=== PATIENT | male | born 1945 | race Caucasian/White ===

== ENCOUNTER 2018-06-09 10:00 | Emergency (ER) | payer MEDICARE ==
[2018-06-09 10:25] VITALS: BP 131/81; PULSE 70; RESP 16; TEMP 97.5
--- NOTE | 2018-06-09 10:39 | ED ---
General Adult HPI - General Chief complaint: Fall Stated complaint: fall Time Seen by Provider: 06/09/18 10:31 Source: patient, RN notes reviewed, old records reviewed Mode of arrival: wheelchair Limitations: no limitations - History of Present Illness Initial comments: 72-year-old male presents status post fall. Fall occurred yesterday at approximately 4 PM. Patient was standing on a ladder, slipped falling onto his left shoulder. He did have minor head injury, uncertain if there was loss of consciousness. Patient is not on any anticoagulation. Over the past 20 hours patient has had increasing pain with movement of the left shoulder, and reports stiffness in his neck. Denies significant headache. Denies any lower extremity injury. No right upper extremity injury. No chest pain or abdominal pain. No dyspnea. No focal numbness or weakness. - Related Data Home Medications Medication Instructions Recorded Confirmed Atorvastatin Calcium [Lipitor] 20 mg PO HS 06/09/18 06/09/18 Azithromycin See Taper PO DAILY 06/09/18 06/09/18 Citalopram Hydrobromide 40 mg PO HS 06/09/18 06/09/18 [Citalopram HBr] Omeprazole 20 mg PO DAILY 06/09/18 06/09/18 Tamsulosin HCl [Flomax] 0.4 mg PO DAILY 06/09/18 06/09/18 predniSONE 10 mg PO DAILY 06/09/18 06/09/18 Allergies Allergy/AdvReac Type Severity Reaction Status Date / Time No Known Allergies Allergy Verified 06/09/18 11:40 Review of Systems ROS Statement: Those systems with pertinent positive or pertinent negative responses have been documented in the HPI. ROS Other: All systems not noted in ROS Statement are negative. Past Medical History Past Medical History: Prostate Disorder History of Any Multi-Drug Resistant Organisms: None Reported Past Surgical History: No Surgical Hx Reported Past Psychological History: Depression Smoking Status: Current every day smoker Past Alcohol Use History: Occasional Past Drug Use History: None Reported General Exam Limitations: no limitations General appearance: alert, in no apparent distress Head exam: Present: atraumatic, normocephalic Eye exam: Present: normal appearance, PERRL ENT exam: Present: normal exam Neck exam: Present: normal inspection, tenderness. Absent: meningismus, full ROM (Patient has decreased range of motion secondary to left paraspinal muscle spasm and tenderness) Respiratory exam: Present: normal lung sounds bilaterally. Absent: respiratory distress, wheezes Cardiovascular Exam: Present: regular rate, normal rhythm GI/Abdominal exam: Present: soft. Absent: distended, tenderness, guarding Extremities exam: Present: normal inspection (No external signs of trauma left upper extremity, range of motion secondary to pain. No deformity noted.). Absent: full ROM Back exam: Present: normal inspection, full ROM. Absent: tenderness, paraspinal tenderness Neurological exam: Present: alert, oriented X3, CN II-XII intact, normal gait. Absent: motor sensory deficit Psychiatric exam: Present: normal affect, normal mood Skin exam: Present: warm, dry, intact. Absent: cyanosis, diaphoretic Course Vital Signs 06/09/18 10:21 Temperature 97.5 F L Pulse Rate 70 Respiratory 16 Rate Blood Pressure 131/81 O2 Sat by Pulse 98 Oximetry Medical Decision Making - Medical Decision Making 72-year-old male status post fall left shoulder pain, left-sided neck pain. Imaging is obtained cervical spine, and this is negative for fracture subluxation. CT of the brain is obtained for intracranial hemorrhage post-x-ray left shoulder and left humerus negative for any acute bony abnormality. Frederic morris did not want any pain medication the emergency department. He will take anti- inflammatories at home. Follow-up with primary care physician. Return with worsening or changing symptoms. Disposition Clinical Impression: Fall, Shoulder contusion, Neck sprain Disposition: HOME SELF-CARE Condition: Good Instructions (If sedation given, give patient instructions): Cervical Strain (ED), Shoulder Sprain (ED) Is patient prescribed a controlled substance at d/c from ED?: No Referrals: Lalito Lorenzo MD [Primary Care Provider] - 1-2 days Time of Disposition: 11:50
--- NOTE | 2018-06-09 11:16 | CT ---
EXAMINATION TYPE: CT brain indio tracy DATE OF EXAM: 06/09/2018 COMPARISON: None HISTORY: Fall CT DLP: 1216.[address] of the brain was performed. The ventricles, basal cisterns and sulci overlying the cerebral convexities demonstrate mild to moder ate enlargement. There is no evidence for intracranial hemorrhage or sulcal effacement. There is decreased attenuatio n about the periventricular white matter and deep white matter of both cerebral hemispheres, compatib le with chronic small vessel ischemia. No mass effects are seen. If symptoms persist consider MRI. Osseous calvarium is intact. IMPRESSION: 1. Age related atrophic and chronic small vessel ischemic change without acute intracranial process seen at this time. CT Cervical Spine: Unenhanced CT of the cervical spine was performed with bone and soft tissue window settings submitted . Coronal and sagittal reconstruction is obtained. There is normal alignment and prevertebral soft tissues. No evidence for acute cervical fracture . Scattered degenerative disc disease and spondylosis. Biapical scarring. IMPRESSION: 1. No evidence for acute fracture or subluxation of the cervical spine.
--- NOTE | 2018-06-09 11:31 | XR ---
EXAMINATION TYPE: XR shoulder complete LT, XR humerus LT DATE OF EXAM: 06/09/2018 CLINICAL HISTORY: Fall injury yesterday with pain TECHNIQUE: Three views of the left shoulder are obtained. 2 views left humerus are acquired. COMPARISON: None. FINDINGS: Demineralization is present. There is no acute fracture/dislocation evident in the left sh oulder. A 5 mm well-corticated oval ossific density from superior aspect distal clavicle could reflec t old avulsion type fracture. The acromioclavicular and glenohumeral joint spaces appear within serge l limits. The visualized ribs are intact and unremarkable. Images of left humerus show no acute fracture or dislocation. Visualized portion of elbow joint is fe lt within normal limits. Overlying soft tissue is unremarkable. IMPRESSION: There is no acute fracture or dislocation in the left humerus or shoulder.
[2018-06-09] MEDS ORDERED: IBUPROFEN 600 MG TAB PO STA (11:36)
== END 2018-06-09 11:57 | disposition home or self-care (01) ==
LOC: EC 10:00
DX: S13.4XXA Sprain of ligaments of cervical spine, initial encounter (principal); S40.012A Contusion of left shoulder, initial encounter; S09.90XA Unspecified injury of head, initial encounter; N42.9 Disorder of prostate, unspecified; F32.9 Major depressive disorder, single episode, unspecified; F17.200 Nicotine dependence, unspecified, uncomplicated; Z79.52 Long term (current) use of systemic steroids; Z79.899 Other long term (current) drug therapy; Z53.8 Procedure and treatment not carried out for other reasons; W11.XXXA Fall on and from ladder, initial encounter; Y92.89 Other specified places as the place of occurrence of the external cause
CPT/HCPCS: 70450; 72125; 99284

== ENCOUNTER → 2018-10-13 | Outpatient (CLI) | payer MEDICARE ==
--- NOTE | 2018-10-15 21:49 | US ---
EXAMINATION TYPE: US carotid duplex BILAT DATE OF EXAM: 10/13/2018 COMPARISON: NONE CLINICAL HISTORY: 72-year-old male G45.9 TIA. TIA TECHNIQUE: Carotid duplex ultrasound examination. Indirect upper criteria was utilized. FINDINGS: EXAM MEASUREMENTS: RIGHT: Peak Systolic Velocity (PSV) cm/sec ----- Right CCA: 83.1 ----- Right ICA: 72.7 ----- Right ECA: 85.8 ICA/CCA ratio: 0.9 RIGHT: End Diastole cm/sec ----- Right CCA: 27.3 ----- Right ICA: 34.3 ----- Right ECA: 22.9 LEFT: Peak Systolic Velocity (PSV) cm/sec ----- Left CCA: 83.4 ----- Left ICA: 221.4 ----- Left ECA: 75.3 ICA/CCA ratio: 2.7 LEFT: End Diastole cm/sec ----- Left CCA: 24.1 ----- Left ICA: 91.3 ----- Left ECA: 16.0 VERTEBRALS (direction of flow): Right Vertebral: Antegrade Left Vertebral: Antegrade Rhythm: Normal [employer] notes: Heterogeneous plaque seen with increase velocities seen at left ICA IMPRESSION: Measurements suggest a moderate (50-69%) stenosis within the proximal left ICA. CT angiogram can furt her evaluate if indicated. Criteria for Assigning % of Stenosis / Diameter reduction (Estimation based on the indirect measurements of the internal carotid artery velocities (ICA PSV). 1. Normal (no stenosis)=ICA PSV < 125 cm/s: ratio < 2.0: ICA EDV<40 cm/s. 2. Less than 50% stenosis=ICA PSV < 125 cm/s: ratio < 2.0: ICA EDV<40 cm/s. 3. 50 to 69% stenosis=ICA PSV of 125 to 230 cm/s: ration 2.0 ? 4.0: ICA EDV 40-100 cm/s. 4. Greater than 70% stenosis to near occlusion= ICA PSV > 230 cm/s: ratio > 4.0: ICA EDV > 100 cm/s. 5. Near occlusion= ICA PSV velocities may be low or undetectable: variable ratio and ICA EDV. 6. Total occlusion=unable to detect flow.
== END | disposition home or self-care (01) ==
LOC: RADUSWWP 15:52
PROVIDERS: ATTEND Internal Medicine
DX: I65.22 Occlusion and stenosis of left carotid artery (principal)
CPT/HCPCS: 93880

== ENCOUNTER → 2018-11-02 | Outpatient (CLI) | payer MEDICARE ==
[2018-11-02 07:02] LABS: African American GFR (CKD) >90 (>60 ml/min/1.73 sqM); Blood Urea Nitrogen 19 mg/dL (9-20)
--- NOTE | 2018-11-02 10:26 | CT ---
EXAMINATION TYPE: CT angio neck DATE OF EXAM: 11/02/2018 HISTORY: Carotid stenosis. COMPARISON: CT of the cervical spine dated 06/09/2018. Carotid ultrasound dated 10/13/2018 CT DLP: 187.1 mGycm. Automated Exposure Control for Dose Reduction was Utilized. TECHNIQUE: CTA scan of the neck is performed , patient injected with 100 mL of Isovue 370, axial siri ges are obtained, coronal and sagittal reformatted images are reviewed. Three-D reconstructed images are created on an independent workstation and reviewed. FINDINGS: Carotid/Vascular Structures: Normal three-vessel takeoff of the articular the aorta. Bilateral common carotid arteries are patent. Small focal calcified plaque is seen near the right carotid bifurcation and proximal right internal carotid artery origin. There is aneurysmal dilatation of the proximal ri ght internal carotid artery measuring approximately 1.7 cm in diameter and 0.9 cm in length. No evide nce of significant stenosis. The remaining portions of the right internal carotid artery are patent. At the origin of the left internal carotid artery there is an area of severe focal stenosis with lume n measuring approximately 1.7 mm. The length of this area is approximately 0.6 centimeters. There is poststenotic dilatation of the proximal left internal carotid artery measuring up to 0.6 cm. No evide nce of dissection, occlusion or stenosis in the remaining left internal carotid artery. Bilateral cheng tebral arteries are patent. Visualized portion of the basilar artery is patent. Other: Emphysematous changes are seen in the lung apices. Soft tissue nodular density seen in the ant erior aspect of the right upper lobe measuring 0.6 cm. These findings are best seen on axial image 6. Small hypoattenuating nodule is seen in the left lobe of the thyroid gland measuring 0.8 cm. IMPRESSION: Greater than 75% stenosis in the proximal left internal carotid artery with poststenotic dilatation o f the proximal left internal carotid artery. 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 0.6 cm right upper lobe soft tissue nodule. Further evaluation with noncontrast CT of the chest is re commended. Left thyroid gland nodule. Further evaluation may be obtained with dedicated thyroid ultrasound.
== END | disposition home or self-care (01) ==
LOC: RADCTMAIN 05:38
PROVIDERS: ATTEND Surgery
DX: I65.22 Occlusion and stenosis of left carotid artery (principal); I72.0 Aneurysm of carotid artery; E04.1 Nontoxic single thyroid nodule
CPT/HCPCS: 82565; 84520; 70498; Q9967

== ENCOUNTER → 2018-11-15 | Outpatient (CLI) | payer MEDICARE ==
--- NOTE | 2018-11-15 16:05 | US ---
EXAMINATION TYPE: US thyroid st tissue head/neck DATE OF EXAM: 11/15/2018 COMPARISON: CLINICAL HISTORY: R22.[address] showed nodule. Patient is not on thyroid meds. GLAND SIZE: Right Lobe: 3.6 x 1.4 x 1.5 cm Overall Parenchyma: homogenous Left Lobe: 4.3 x 1.4 x 1.7 cm Overall Parenchyma: homogeneous Isthmus Thickness: 0.2 cm NODULES RIGHT: # of nodules measured on right: 0 LEFT: # of nodules measured on left: 2 1. 0.9 x 0.6 x 0.5 cm septated cystic nodule at the upper pole with well-defined margins. This nod ule is wider than tall and shows no intranodular vascularity. Prior size: No prior 2. 0.4 X 0.3 x 0.2 cm cystic nodule at the mid pole with well-defined margins. This nodule is wider than tall and shows no intranodular vascularity. Prior size: No prior ISTHMUS: # of nodules measured in the isthmus: 0 Bilateral neck scanned, no evidence of lymphadenopathy. IMPRESSION: 1. Subcentimeter left lobe thyroid nodules.
--- NOTE | 2018-11-17 03:34 | CT ---
EXAMINATION TYPE: CT chest wo con DATE OF EXAM: 11/15/2018 COMPARISON: Correlation CTA neck 11/02/2018 HISTORY: 73-year-old male solitary pulmonary nodule TECHNIQUE: Contiguous axial scanning of the chest without IV contrast. Coronal and sagittal reconstru ctions performed. CT DLP: 257.6 mGycm Automated exposure control for dose reduction was used. FINDINGS: Heart normal size without pericardial effusion. Ectatic ascending aorta 3.9 cm. Conventional arch vessel branching anatomy. Prominent but not enlarged precarinal lymph node at 8 mm. In addition, there is a circumscribed nodule measuring 1.5 cm anterior to the base of the heart, axia l image 34 and sagittal image 55. This shows attenuation of 3 Hounsfield units and a cystic structure is suspected. A three-month follow-up CT can be performed. Otherwise, no thoracic lymphadenopathy by CT size criteria. Evaluation of the lungs shows moderate paraseptal and centrilobular emphysema predominantly in the up per lungs. Mild diffuse bronchial wall thickening. 4 mm anterior right upper lobe pulmonary nodule axial image 16. 4 mm subpleural pulmonary nodule anterior right mid lung axial image 38. 4 mm pulmonary nodule within the lingula, axial image 27. Strandy dependent atelectasis posterior right base and within the basilar right middle lobe. No conso lidation or pleural effusion. Visualized upper abdomen shows ectatic infrarenal abdominal aorta with atherosclerotic calcification and possible underlying 3.7 cm AAA. Round lesion adjacent to the lateral aspect of the left kidney measures 3.3 cm with attenuation of 13 .5 Hounsfield units, possible cyst exophytic from the left kidney. Additional partially visualized le nehemias more inferiorly lateral aspect of the left kidney measures at least 3.4 cm. Bones: No osseous destructive process. IMPRESSION: 1. COPD WITH MILD TO MODERATE EMPHYSEMA. 2. A 1.5 CM NODULE IN THE ANTERIOR MEDIASTINUM LOCATED ANTERIOR TO THE BASE OF THE HEART. ATTENUATION OF 3 HOUNSFIELD UNITS SUGGESTS A CYSTIC STRUCTURE SUCH A PERICARDIAC CYST. 3 MONTH FOLLOW-UP CT R ECOMMENDED TO REASSESS. 3. SCATTERED 4 MM PULMONARY NODULES CAN BE REASSESSED AT THE PATIENT'S FOLLOW-UP WELL. STABILITY O PRINCE THE COURSE OF ONE OR 2 YEARS IS RECOMMENDED. 4. POSSIBLE UNDERLYING AAA. CONSIDER SCREENING ULTRASOUND. 5. A COUPLE ROUND LESIONS LATERAL TO THE LEFT KIDNEY. ONE IS PARTIALLY VISUALIZED MEASURING AT LEAST 3.4 CM. POSSIBLE EXOPHYTIC RENAL CYSTS. RECOMMEND CORRELATION WITH RENAL ULTRASOUND TO FURTHER EVALUA TE. IF THIS REMAINS INDETERMINATE, CONTRAST ENHANCED CT MAY BE NEEDED.
== END | disposition home or self-care (01) ==
LOC: RADUSWWP 14:43
PROVIDERS: ATTEND Internal Medicine
DX: J43.9 Emphysema, unspecified (principal); E04.2 Nontoxic multinodular goiter; R91.8 Other nonspecific abnormal finding of lung field
CPT/HCPCS: 71250; 76536

== ENCOUNTER → 2019-05-16 | Outpatient (CLI) | payer MEDICARE ==
--- NOTE | 2019-05-17 12:57 | MR ---
EXAMINATION TYPE: MR cervical spine wo con DATE OF EXAM: 05/16/2019 COMPARISON: None HISTORY: 73-year-old male Neck pain, radiates into lt shoulder, hx fall 6 mos ago TECHNIQUE: Multiplanar, multisequence images of the cervical spine were acquired. FINDINGS: No craniocervical junction abnormality, predental space widening, or prevertebral soft tissue swellin g. Intervertebral disc desiccation throughout. Moderate disc height loss at C5-C6 and mild at C6/C7 with disc osteophyte complex formation. Some edematous Modic type I endplate changes noted at C5-C6. Corresponding ligamentum flavum thickening greatest at this level along with scattered facet and unco vertebral joint arthropathy. No suspicious bone marrow replacement. At C2-C3, no canal or foraminal stenosis. At C3-C4, mild facet arthropathy with mild left neuroforaminal stenosis. No spinal canal stenosis. At C4-C5, facet and uncovertebral joint arthropathy with mild left neuroforaminal stenosis. No spinal canal stenosis. At C5-C6, there is facet and uncovertebral joint arthropathy with ligamentum flavum thickening and gr rosales 1 retrolisthesis. This results in a mild spinal canal stenosis with abutment of the ventral cord and moderate to severe right greater than left foraminal stenosis. At C6/C7, smaller disc osteophyte complex with ligamentum flavum thickening, hypertrophic facet and u ncovertebral joint adenopathy results in moderate left greater than right neuroforaminal stenosis. Mi ld narrowing of the spinal canal with abutment of the ventral cord. At C7-T1, no spinal canal or neuroforaminal stenosis. Normal course and signal intensity of the cervical cord. IMPRESSION: 1. Mild multilevel degenerative disc disease though more moderate at C5-C6 where there is associated edematous Modic type I endplate change. 2. Hypertrophic facet and uncovertebral joint arthropathy especially at C5-C6 and C6-C7. Degenerative grade 1 retrolisthesis at C5-C6. 3. Changes result in a mild spinal canal stenosis at C5-C6 and minimal canal narrowing at C6-C7 with abutment of the ventral cord. No cord compression or high-grade canal compromise. 4. Moderate to severe neuroforaminal stenoses at C5-C6 and moderate at C6-C7.
== END | disposition home or self-care (01) ==
LOC: RADMRIMAIN 14:34
PROVIDERS: ATTEND Orthopaedic Surgery
DX: M48.02 Spinal stenosis, cervical region (principal); M50.122 Cervical disc disorder at C5-C6 level with radiculopathy; M43.12 Spondylolisthesis, cervical region; M46.92 Unspecified inflammatory spondylopathy, cervical region; S40.012D Contusion of left shoulder, subsequent encounter; R60.9 Edema, unspecified; F17.210 Nicotine dependence, cigarettes, uncomplicated
CPT/HCPCS: 72141

== ENCOUNTER → 2019-05-29 | Outpatient (CLI) | payer MEDICARE ==
[2019-05-29 13:00] VITALS: BP 123/81; PULSE 71; RESP 16
--- NOTE | 2019-05-29 14:47 | P.PAINCN ---
History of Present Illness - Reason for Consult Consult date: 05/29/19 - History of Present Illness initial consultation visit for this 73 years old male with a chronic seals severe neck pain started a year ago after he fell from the ladder and from that time, he continued to have severe neck pain which is increased with any activity, especially the neck movement, the pain in the cervical area radiating to the shoulder blade area bilaterally but is more severe on the right side, he denies any motor or sensory deficit he denies any change in bowel movement or urination, intensity of the pain fluctuates between 4/10 with increased with activity to 6/10, interfering with the quality of life, patient doesn't 24th session of physical therapy with only short-term benefit . Past Medical History Past Medical History: Hypertension, Prostate Disorder History of Any Multi-Drug Resistant Organisms: None Reported Past Surgical History: No Surgical Hx Reported Additional Past Surgical History / Comment(s): CAROTID SX LT SIDE. EGD Past Anesthesia/Blood Transfusion Reactions: No Reported Reaction Smoking Status: Current every day smoker - Past Family History Father Family Medical History: Cancer Medications and Allergies Home Medications Medication Instructions Recorded Confirmed Type Atorvastatin Calcium [Lipitor] 20 mg PO HS 06/09/18 05/28/19 History Citalopram Hydrobromide 40 mg PO HS 06/09/18 05/28/19 History [Citalopram HBr] Omeprazole 20 mg PO DAILY 06/09/18 05/28/19 History Tamsulosin HCl [Flomax] 0.4 mg PO DAILY 06/09/18 05/28/19 History Allergies Allergy/AdvReac Type Severity Reaction Status Date / Time No Known Allergies Allergy Verified 05/28/19 10:51 Physical Exam Vitals: Vital Signs Pulse Resp BP Pulse Ox 05/29/19 12:54 71 16 123/81 71 L Social history= smoker, no illegal drug use REVIEW OF ORGAN SYSTEMS: CONSTITUTIONAL: No fevers or chills. No recent weight loss. EYES: denies troubles with vision. HEENT: No difficulties with hearing. No nosebleeds. No difficulty swallowing. RESPIRATORY: Denies any troubles with breathing or dyspnea on exertion. CARDIOVASCULAR: Denies any chest pain, palpitations, or recent heart attacks. GASTROINTESTINAL: Denies fatty food intolerance. Has change in bowel habits and gas bloat. GENITOURINARY: Denies any blood in urine. Has increased urinary frequency. NEUROLOGICAL: no numbness and tingling along the distal extremities. No seizure disorders or headaches. MUSCULOSKELETAL: Has back pain. SKIN:no skin cancer. No rash. PSYCHIATRIC: Denies current depression or suicidal thoughts. ENDOCRINE: Denies current thyroid disorders. Denies any blood sugar glucose intolerance. HEME/LYMPHATIC: Denies any lumps and bumps around the neck. History of deep venous thrombosis. ALLERGY/IMMUNOLOGY: No immunoglobulin therapy. No immune deficiencies. BREAST: Denies current breast lumps, pain or nipple discharge. Physical Examinations : Constitutiona : Cooperative , not in acute distress . HEENT : nech : supple , no Lymphadenopathy , normal thyroid size . : eyes no ptosis , no icterus, no photophobia . : ENT normal of hearing , normal oropharynx , no Thrush . Respiratory : Chest clear to auscultations Bilaterally , no wheezing , no Rhonchi . Cardiovascula : regular rate and rhythem , S1 , S2 , no S3 , no S4. Gastrointestina : abdomen soft no tenderness , bowel sounds , no organomegally . Genitourinary : Defferred . neurologic : Cranial nerve II to XII intact , no focal neurological deffecit . psychatric : alert , oriented X 3 , appropriate affect , intact judgment and insight . Lymphatic : no Lymphadenopathy . musculoskeltal : Cervical Spine motor stregnth in the deltoid and biceps, normal right side , normal Left side motor stregnth biceps and the wrist extensors normal right side ,normal left side . motor stregnth in the triceps muscle . normal Right side , normal Left side deep tendon reflexes= normal at the biceps , normal at Brachioradialis , normal at triceps. cervical facet loading test: Positive Bilaterally Spurling test= positive bilaterally. Neck distraction test= positive bilaterally. Helen sign= positive bilaterally. Lumber spine moter stegnth lower extremities ,thigh and legs 5/5 Right side , 5/5 Left side Results Comments: MRI of the cervical spine= the left [facility]= multilevel lumbar degenerative disc disease and multilevel facet arthropathy and uncovertebral joint arthroplasty and there is moderate spinal canal stenosis at C5 6 and C6 7 Assessment and Plan Plan: Assessment and plan= cervical degenerative disc disease. Cervical spinal stenosis at C5 6 ,and C6 7 Cervical spondylosis with cervical facet arthropathy without myelopathy Patient will be good candidate for diagnostic medial branch block cervical areaC3 ,C4 ,C5, C6 X2 and if positive will do RFA Time with Patient: Greater than 30 PQRS Measure Charge Sheet Measure #130: Documentation of Current Meds in Medical Chart: Patient's medications documented in chart Measure #226: Tobacco Use: Screen & Cessation Intervention: Pt screened for tobacco use AND intervention given Measure #111: Pneumonia Vaccination: Pneumococcal vaccine NOT administered or previously given Measure #47: Advance Care Plan: Advance care planning discussed & documented, pt chose/unable to give Measure #412: Opioid Treatment Agreement: No documentation of signed opioid treatment agreement Measure #408: Opioid Therapy Follow-up Evaluation: Patient had NO f/u eval minimum every 3 months during opioid therapy Measure #317: Preventitive Care & Scrn High Bld Press & F/U: Normal blood pressure, f/u not required Measure #128: Body Mass Index (BMI) Screening & Follow-up: BMI documented within normal parameters Measure #131: Pain Assessment & Follow-up: Pain positive & plan documented, Follow-up scheduled Measure #431: Unhealthy Alcohol Use Preventative Care & Scrn: Patient not identified as an unhealthy alcohol user PQRS Narrative: Smoking Status Current every day smoker Blood Pressure 123/81 Pain Intensity [Neck] 7 Scale Used Numeric (1 - 10) Hx Alcohol Use (MH) Yes Home Medications: Ambulatory Orders Atorvastatin Calcium [Lipitor] 20 mg PO HS 06/09/18 Citalopram Hydrobromide [Citalopram HBr] 40 mg PO HS 06/09/18 Omeprazole 20 mg PO DAILY 06/09/18 Tamsulosin HCl [Flomax] 0.4 mg PO DAILY 06/09/18
== END | disposition home or self-care (01) ==
LOC: PNWHC3 12:48
PROVIDERS: ATTEND Specialist
DX: M48.02 Spinal stenosis, cervical region (principal); M50.30 Other cervical disc degeneration, unspecified cervical region; M47.812 Spondylosis without myelopathy or radiculopathy, cervical region; F17.200 Nicotine dependence, unspecified, uncomplicated; Z79.899 Other long term (current) drug therapy
CPT/HCPCS: 99211

== ENCOUNTER → 2019-08-10 | Outpatient (CLI) | payer MEDICARE | END | disposition home or self-care (01) | LOC: LABWHC1 12:17 | PROVIDERS: ATTEND Anesthesiology | DX: Z11.59 Encounter for screening for other viral diseases (principal) | CPT/HCPCS: 87635 ==

== ENCOUNTER → 2019-08-14 | Day surgery (SDC) | payer MEDICARE ==
[2019-08-10 13:14] VITALS: BMI 23.6
[~2019-08-14] MED LIST: IOPAMIDOL M200 10 ML VIAL ONE; LACTATED RINGERS 1,000 ML IV SCH; LIDOCAINE 1% (10MG/ML) FOR IV START INTRADERMA ONE; LIDOCAINE 4% (PF) 5 ML AMP ONE; MIDAZOLAM 2 MG/2 ML VIAL ONE
[2019-08-14 06:33] VITALS: TEMP 97.8
--- NOTE | 2019-08-14 07:33 | P.PCN ---
Date of Procedure: 08/14/19 Procedure(s) Performed: PREOPERATIVE DIAGNOSIS: Cervical Spondylosis with Facet Arthropathy.without myelopathy POSTOPERATIVE DIAGNOSIS: Cervical Spondylosis, Facet Arthropathy. Without myelopathy PROCEDURES: Bilateral Diagnostic C3, C4, C5, C6 medial branch blocks for facets C3-4, C4-5, C5-6, with fluoroscopic guidance ANESTHESIA: Local with 1% lidocaine; IV sedation with Versed, sedation time 23 minutes Fluoroscopy was used for the procedure and images were saved in the radiology portion of the chart. EBL: Minimal PROCEDURE INDICATION: The patient with neck pain secondary to cervical arthropathy unresponsive to more conservative treatments. PROCEDURE DESCRIPTION / TECHNIQUE: The patient was seen and identified in the preoperative area. Risks, benefits, complications, and alternatives were discussed with the patient, the patient agreed to proceed with the procedure and signed the consent. IV was started. Vital signs remained stable throughout the procedure. Patient was taken to the OR and time out was completed. The patient was placed in the prone position on the procedure table. A pillow was placed under the patients chest to increase the cervical interlaminar space. The cervical area was prepped and draped in the usual sterile fashion. A timeout was performed. Vital signs were closely monitored during the procedure. Conscious sedation was used during the procedure to decrease patients anxiety. Using cross-table lateral fluoroscopy, the centroid of the trapezoid of the first level was identified, marked, and localized with 1% lidocaine 0.2 ml at each level for skin and subcutaneous infiltration . Subsequently, a 25 G 3.5" Quinke spinal needle was advanced guided by fluoroscopy to the centroid of the trapezoid . [employer] tip position was confirmed using lateral fluoroscopy.0.2 mL of Isovue-200 was injected at each level, revealing no intravascular uptake. Subsequently, 0.5 mL of [4% lidocaine] was injected at each level. COMPLICATIONS: No acute complications. DISPOSITION / PLANS: The patient was placed in a supine position and transferred to the recovery area in a stable condition for observation and was discharged from the recovery room after meeting discharge criteria. Home discharge instructions given to the patient by the staff. The patient will follow up for repeat procedure in 2 weeks.
[2019-08-14 07:46] VITALS: RESP 17
[2019-08-14 07:48] VITALS: BP 132/83; PULSE 60
--- NOTE | 2019-08-14 08:03 | FL ---
EXAMINATION TYPE: FL guided pain mgmt statistic DATE OF EXAM: 08/14/2019 HISTORY: Fluoroscopy time 12 seconds of fluoroscopy provided. IMPRESSION: 1. Fluoroscopy time.
== END ==
LOC: ORPAIN 06:07
PROVIDERS: ATTEND Anesthesiology
DX: M47.812 Spondylosis without myelopathy or radiculopathy, cervical region (principal)
CPT/HCPCS: 64490; 64491; 64492; J2001; J2250; Q9966; 99152

== ENCOUNTER → 2019-09-12 | Outpatient (CLI) | payer MEDICARE ==
[2019-09-12 11:58] VITALS: BP 117/76; PULSE 66
--- NOTE | 2019-09-12 12:13 | P.PAINPG ---
Subjective Progress Note Date: 09/12/19 This is follow up visit for this 73 years old male with a chronic seals severe neck pain , he is a close with cervical degenerative disc disease cervical foraminal stenosis and cervical spondylosis with cervical facet arthropathy , recently we have done diagnostic medial branch block cervical area and he reported that his pain was 6/10 before the block dropped to 4/10 after the block, his neck pain which is increased with any activity, especially the neck movement, the pain in the cervical area radiating to the shoulder blade area bilaterally but is more severe on the right side, he denies any motor or sensory deficit he denies any change in bowel movement or urination, intensity of the pain fluctuates between 4/10 with increased with activity to 6/10, interfering with the quality of life, patient had physical therapy with only short-term benefit . Objective - Vital Signs Vital signs: Vital Signs Temp Pulse 66 09/12/19 11:53 Resp BP 117/76 09/12/19 11:53 Pulse Ox - Exam Constitution[place] : Cooperative , not in acute distress . HEENT : nech : supple , no Lymphadenopathy , normal thyroid size . : eyes no ptosis , no icterus, no photophobia . neurologic : Cranial nerve II to XII intact , no focal neurological deffecit . psychatric : alert , oriented X 3 , appropriate affect , intact judgment and insight . Lymphatic : no Lymphadenopathy . musculoskeltal : Cervical Spine motor stregnth in the deltoid and biceps, normal right side , normal Left side motor stregnth biceps and the wrist extensors normal right side ,normal left side . motor stregnth in the triceps muscle . normal Right side , normal Left side deep tendon reflexes= normal at the biceps , normal at Brachioradialis , normal at triceps. cervical facet loading test: Positive Bilaterally Spurling test= positive bilaterally. Neck distraction test= positive bilaterally. Helen sign= positive bilaterally. Lumber spine moter stegnth lower extremities ,thigh and legs 5/5 Right side , 5/5 Left side Assessment and Plan Plan: MRI of the cervical spine= the left [facility]= multilevel lumbar degenerative disc disease and multilevel facet arthropathy and uncovertebral joint arthroplasty and there is moderate spinal canal stenosis at C5 6 and C6 7 Assessment and plan= cervical degenerative disc disease. Cervical spinal stenosis at C5 6 ,and C6 7 Cervical spondylosis with cervical facet arthropathy without myelopathy Patient had no benefit after the diagnostic medial branch blocks C3 ,C4,C5, C6 ( pain was 6/10 decreased to 4/10 after the block) Patient will be good candidate to have cervical epidural steroid injection under fluoroscopy guidance at C7-T1 Time with Patient: Less than 30 PQRS Measure Charge Sheet Measure #130: Documentation of Current Meds in Medical Chart: Patient's med ications documented in chart Measure #226: Tobacco Use: Screen & Cessation Intervention: Pt screened for tobacco use AND intervention given Measure #111: Pneumonia Vaccination: Pneumococcal vaccine NOT administered or previously given Measure #47: Advance Care Plan: Advance care planning discussed & documented, pt chose/unable to give Measure #412: Opioid Treatment Agreement: No documentation of signed opioid treatment agreement Measure #408: Opioid Therapy Follow-up Evaluation: Patient had NO f/u eval minimum every 3 months during opioid therapy Measure #317: Preventitive Care & Scrn High Bld Press & F/U: Normal blood pressure, f/u not required Measure #128: Body Mass Index (BMI) Screening & Follow-up: BMI documented within normal parameters Measure #131: Pain Assessment & Follow-up: Pain positive & plan documented Measure #431: Unhealthy Alcohol Use Preventative Care & Scrn: Patient not identified as an unhealthy alcohol user PQRS Narrative: Smoking Status Current every day smoker Blood Pressure 117/76 Pain Intensity [Neck] 3 Scale Used Numeric (1 - 10) Hx Alcohol Use (MH) Yes: OCCASIONAL Home Medications: Ambulatory Orders Atorvastatin Calcium [Lipitor] 20 mg PO HS 06/09/18 Citalopram Hydrobromide [Citalopram HBr] 40 mg PO HS 06/09/18 Omeprazole 20 mg PO DAILY 06/09/18 Tamsulosin HCl [Flomax] 0.4 mg PO DAILY 06/09/18 Naproxen Sodium [Aleve] 440 mg PO Q8H PRN 06/05/19 Controlled Substance Measures - Controlled Substance Measures Is patient prescribed a controlled substance at discharge?: No
== END | disposition home or self-care (01) ==
LOC: PNWHC3 11:46
PROVIDERS: ATTEND Specialist
DX: M48.02 Spinal stenosis, cervical region (principal); M50.322 Other cervical disc degeneration at C5-C6 level; M47.812 Spondylosis without myelopathy or radiculopathy, cervical region; F17.200 Nicotine dependence, unspecified, uncomplicated; Z79.1 Long term (current) use of non-steroidal anti-inflammatories (NSAID); Z79.899 Other long term (current) drug therapy
CPT/HCPCS: 99211

== ENCOUNTER 2019-09-25 11:24 | Day surgery (SDC) | payer MEDICARE ==
[2019-09-19 15:47] VITALS: BMI 23.3
[~2019-09-25 11:24] MED LIST changes: -IOPAMIDOL M200 10 ML VIAL ONE; -LIDOCAINE 1% (10MG/ML) FOR IV START INTRADERMA ONE; -LIDOCAINE 4% (PF) 5 ML AMP ONE; -MIDAZOLAM 2 MG/2 ML VIAL ONE
[2019-09-25 11:45] VITALS: TEMP 98
[2019-09-25] MEDS ORDERED: LACTATED RINGERS 1,000 ML IV ONE (11:45)
[2019-09-25] MEDS ORDERED: LIDOCAINE 1% (10MG/ML) FOR IV START INTRADERMA ONE (11:45)
[2019-09-25] MEDS ORDERED: DEXAMETHASONE SOD PHOSPHATE 10 MG/ML 1 ML VIAL ONE (12:12)
[2019-09-25] MEDS ORDERED: IOPAMIDOL M200 10 ML VIAL ONE (12:12)
--- NOTE | 2019-09-25 12:26 | P.PCN ---
Date of Procedure: 09/25/19 Procedure(s) Performed: . PROCEDURE 1. Cervical epidural steroid injection under fluoroscopic guidance, C7-T1 (fluoroscopy images available in the radiology department ) 2. Cervical epidurogram. PREOPERATIVE DIAGNOSIS: 1- Cervical Degenerative Disc Diseases 2- Cervical spinal stenosis. 3-cervical spondylosis with cervical Facet arthropathy without myelopathy POSTOPERATIVE DIAGNOSIS: : 1- Cervical Degenerative Disc Diseases , 2- Cervical spinal stenosis. 3-,cervical spondylosis with cervical Facet arthropathy without myelopathy ANESTHESIA: Local anesthesia with lidocaine 1 % 3 ml only EBL 0 PROCEDURE INDICATION: The patient with neck pain and radiculitis unresponsive to conservative treatment consents for procedure. PROCEDURE DESCRIPTION / TECHNIQUE: The patient was seen and identified in the preoperative area. Risks, benefits, complications, including but not limited to infections ,bleeding , allergic reactions to the medications ,and not complete pain releife, and alternatives were discussed with the patient, the patient agreed to proceed with the procedure and signed the consent. Patient was taken to the OR and time out was completed. The patient was placed in the prone position on the procedure table. A pillow was placed under the patients chest to increase the cervical interlaminar space. The cervical area was prepped and draped in the usual sterile fashion. Vital signs were closely monitored during the procedure. Using anterior-posterior fluoroscopy, the C7-T1 interlaminar space was identified and the skin over this site was marked and then infiltrated with 1% lidocaine subcutaneously. Subsequently, a 20-gauge 3-1/2-inch Tuohy epidural needle was inserted and advanced toward the epidural space by means of the ``hanging-drop technique and guided by AP and lateral fluoroscopy. The correct needle position in the epidural space was verified with the injection of 2 mL of the water soluble contrast dye Isovue-200 and observing an excellent epidurogram with the epidural spread of the dye, after negative aspiration for blood and CSF and in the absence of paresthesias. Again after negative aspiration, mixture containing 20 mg Dexamethasone and 2 ml of preservative- free normal saline injected and a washout of epidurogram was seen. Needle was withdrawn intact, skin was cleansed, and bandages were applied. Complications= none. Disposition= patient was placed in supine position and transferred to the recovery room area in stable condition and there was no evidence of upper or lower extremity motor or sensory deficit after the procedure patient was discharged from recovery room after discharge criteria met and home discharge instructions was given by the staff and patient will follow with the pain clinic in 2-4 weeks
[2019-09-25] MEDS ORDERED: IV FLUID CONTINUATION 1,000 ML IV ONE ×2 (12:33)
[2019-09-25 12:36] VITALS: BP 125/79; PULSE 53; RESP 16
--- NOTE | 2019-09-25 12:43 | FL ---
EXAMINATION TYPE: FL guided pain mgmt statistic DATE OF EXAM: 09/25/2019 HISTORY: Fluoroscopy time 3 seconds of fluoroscopy provided. IMPRESSION: 1. Fluoroscopy time.
== END 2019-09-25 12:59 | disposition home or self-care (01) ==
LOC: ORPAIN 11:24
PROVIDERS: ATTEND Specialist
DX: M50.30 Other cervical disc degeneration, unspecified cervical region (principal); M48.02 Spinal stenosis, cervical region; M47.812 Spondylosis without myelopathy or radiculopathy, cervical region; I10 Essential (primary) hypertension
CPT/HCPCS: 62321

== ENCOUNTER → 2019-10-17 | Outpatient (CLI) | payer MEDICARE ==
[2019-10-17 12:51] VITALS: BP 125/82; PULSE 64; RESP 18; TEMP 97.9
--- NOTE | 2019-10-17 13:09 | P.PAINPG ---
Subjective Progress Note Date: 10/17/19 This is a follow up visit for this 73 year old male with a chronic severe neck pain , he has been diagnosed with cervical degenerative disc disease, cervical foraminal stenosis and cervical spondylosis with cervical facet arthropathy , recently we have done cervical epidural steroid injections on 09/25/2019. Patient returns today for follow-up. He reports good relief from this procedure. Today, his pain is located in the bilateral neck radiating to occipital region on both sides and right shoulder. Pain is worse with changes in position and sleeping and better with heat, exercise. He currently takes when necessary Aleve for pain. He denies numbness, weakness, tingling in upper extremities. Review of systems is negative for chest pain, shortness of breath, new onset weakness, numbness/tingling, abdominal pain, malaise, fever, night sweats, chills, homicidal or suicidal ideation, or bowel or bladder incontinence. Objective Physical exam: Vitals: Reviewed in EMR GENERAL: Well appearing, in no acute distress PSYCH: Mood and affect is appropriate. Awake, alert, and oriented SKIN: Skin color, texture, turgor normal, no rashes or lesions HEENT: Normocephalic, atraumatic. EOM intact CV: No pedal edema RESP: Respirations are unlabored, no audible wheezing GI: Abdomen non-distended MUSCULOSKELETAL: Bilateral upper extremity strength is normal and symmetric. No atrophy or tone abnormalities are noted. Neck: Mild tenderness to palpation over the cervical paraspinous muscles on the right side. Spurling negative, Reeves's sign negative. He does endorse pain with neck flexion, extension, or lateral flexion. No obvious deformity or signs of trauma. Normal cervical lordotic curve Extremities: Peripheral joint ROM is full and pain free without obvious instability or laxity in all four extremities. No edema or skin discolorations noted. NEUR: Bilateral upper extremity coordination and muscle stretch reflexes are physiologic and symmetric. No loss of sensation is noted. Assessment and Plan Plan: MRI of the cervical spine= the left [facility]= multilevel lumbar degenerative disc disease and multilevel facet arthropathy and uncovertebral joint arthroplasty and there is moderate spinal canal stenosis at C5 6 and C6 7 Assessment and plan= cervical degenerative disc disease. Cervical spinal stenosis at C5 6 ,and C6 7 Cervical spondylosis with cervical facet arthropathy without myelopathy Patient had no benefit after the diagnostic medial branch blocks C3 ,C4,C5, C6 Patient underwent cervical epidural steroid injection 1 with good benefit, we will schedule repeat procedure. In the future, he may benefit from bilateral occipital nerve blocks. PQRS Measure Charge Sheet Measure #130: Documentation of Current Meds in Medical Chart: Patient's medications documented in chart Measure #226: Tobacco Use: Screen & Cessation Intervention: Pt screened for tobacco use AND intervention given Measure #111: Pneumonia Vaccination: Pneumococcal vaccine administered or previously given Measure #47: Advance Care Plan: Advance care planning discussed & documented, pt chose/unable to give Measure #412: Opioid Treatment Agreement: No documentation of signed opioid treatment agreement Measure #408: Opioid Therapy Follow-up Evaluation: Patient had NO f/u eval minimum every 3 months during opioid therapy Measure #317: Preventitive Care & Scrn High Bld Press & F/U: Normal blood pressure, f/u not required Measure #128: Body Mass Index (BMI) Screening & Follow-up: BMI documented within normal parameters Measure #131: Pain Assessment & Follow-up: Pain positive & plan documented PQRS Measure Charge Sheet PQRS Narrative: Smoking Status Current every day smoker Pain Intensity [Bilateral 4 Lower Posterior Neck] Scale Used Numeric (1 - 10) Hx Alcohol Use (MH) Yes: OCCASIONAL Home Medications: Ambulatory Orders Atorvastatin Calcium [Lipitor] 20 mg PO HS 06/09/18 Citalopram Hydrobromide [Citalopram HBr] 40 mg PO HS 06/09/18 Omeprazole 20 mg PO DAILY 06/09/18 Tamsulosin HCl [Flomax] 0.4 mg PO DAILY 06/09/18 Naproxen Sodium [Aleve] 440 mg PO Q8H PRN 06/05/19 Controlled Substance Measures - Controlled Substance Measures Is patient prescribed a controlled substance at discharge?: No
== END | disposition home or self-care (01) ==
LOC: PNWHC3 12:12
PROVIDERS: ATTEND Anesthesiology
DX: M48.02 Spinal stenosis, cervical region (principal); M50.30 Other cervical disc degeneration, unspecified cervical region; M47.812 Spondylosis without myelopathy or radiculopathy, cervical region; M46.96 Unspecified inflammatory spondylopathy, lumbar region; M51.36 Other intervertebral disc degeneration, lumbar region; F17.200 Nicotine dependence, unspecified, uncomplicated; Z79.891 Long term (current) use of opiate analgesic; Z79.899 Other long term (current) drug therapy
CPT/HCPCS: 99211

== ENCOUNTER 2019-11-20 09:35 | Day surgery (SDC) | payer MEDICARE ==
[2019-11-20 09:59] VITALS: TEMP 97.8
[2019-11-20] MEDS ORDERED: DEXAMETHASONE SOD PHOSPHATE 10 MG/ML 1 ML VIAL ONE (10:33)
[2019-11-20] MEDS ORDERED: IOPAMIDOL M200 10 ML VIAL ONE (10:33)
--- NOTE | 2019-11-20 10:46 | P.PCN ---
Date of Procedure: 11/20/19 Procedure(s) Performed: PROCEDURE 1. Cervical epidural steroid injection under fluoroscopic guidance, C7-T1 (fluoroscopy images available in the radiology department ) 2. Cervical epidurogram. PREOPERATIVE DIAGNOSIS: 1- Cervical Degenerative Disc Diseases 2- Cervical spinal stenosis. 3-cervical spondylosis with cervical Facet arthropathy without myelopathy POSTOPERATIVE DIAGNOSIS: : 1- Cervical Degenerative Disc Diseases , 2- Cervical spinal stenosis. 3-,cervical spondylosis with cervical Facet arthropathy without myelopathy ANESTHESIA: Local anesthesia with lidocaine 1 % 3 ml only EBL 0 PROCEDURE INDICATION: The patient with neck pain and radiculitis unresponsive to conservative treatment consents for procedure. PROCEDURE DESCRIPTION / TECHNIQUE: The patient was seen and identified in the preoperative area. Risks, benefits, complications, including but not limited to infections ,bleeding , allergic reactions to the medications ,and not complete pain releife, and alternatives were discussed with the patient, the patient agreed to proceed with the procedure and signed the consent. Patient was taken to the OR and time out was completed. The patient was placed in the prone position on the procedure table. A pillow was placed under the patients chest to increase the cervical interlaminar space. The cervical area was prepped and draped in the usual sterile fashion. Vital signs were closely monitored during the procedure. Using anterior-posterior fluoroscopy, the C7-T1 interlaminar space was identified and the skin over this site was marked and then infiltrated with 1% lidocaine subcutaneously. Subsequently, a 20-gauge 3-1/2-inch Tuohy epidural needle was inserted and advanced toward the epidural space by means of the ``hanging-drop technique and guided by AP and lateral fluoroscopy. The correct needle position in the epidural space was verified with the injection of 2 mL of the water soluble contrast dye Isovue-200 and observing an excellent epidurogram with the epidural spread of the dye, after negative aspiration for blood and CSF and in the absence of paresthesias. Again after negative aspiration, mixture containing 20 mg Dexamethasone and 2 ml of preservative- free normal saline injected and a washout of epidurogram was seen. Needle was withdrawn intact, skin was cleansed, and bandages were applied. Complications= none. Disposition= patient was placed in supine position and transferred to the recovery room area in stable condition and there was no evidence of upper or lower extremity motor or sensory deficit after the procedure patient was discharged from recovery room after discharge criteria met and home discharge instructions was given by the staff and patient will follow with the pain clinic in 2-4 weeks
[2019-11-20 10:56] VITALS: RESP 16
[2019-11-20 11:04] VITALS: BP 159/87; PULSE 51
--- NOTE | 2019-11-20 11:12 | FL ---
EXAMINATION TYPE: FL guided pain mgmt statistic DATE OF EXAM: 11/20/2019 CLINICAL HISTORY: Neck pain. TECHNIQUE: Fluoroscopy. COMPARISON: None. FINDINGS: Fluoroscopic guidance was provided during pain relief procedure performed by Dr. Fernández . A total of 5 seconds of fluoroscopic time was utilized during the procedure and 1 spot images are acquired. Single image acquired shows needle localization near cervicothoracic junction. IMPRESSION: As Above.
== END 2019-11-20 11:07 | disposition home or self-care (01) ==
LOC: ORPAIN 09:35
PROVIDERS: ATTEND Specialist
DX: M47.22 Other spondylosis with radiculopathy, cervical region (principal); M50.10 Cervical disc disorder with radiculopathy, unspecified cervical region; I10 Essential (primary) hypertension; M48.02 Spinal stenosis, cervical region
CPT/HCPCS: 62321; J1100; Q9966

== ENCOUNTER → 2019-12-17 | Outpatient (CLI) | payer MEDICARE ==
[2019-12-17 12:03] VITALS: BP 129/84; PULSE 60; RESP 18; TEMP 97.9
--- NOTE | 2019-12-18 12:23 | P.PN ---
Progress Note - Text Progress Note Date: 12/17/19 This is a follow-up visit for this 74 years old male with a history of severe and chronic neck pain his diagnosed with cervical spinal stenosis cervical degenerative disc disease and cervical spondylosis with cervical facet arthropathy, status post cervical epidural steroid injections 2, patient reported that he had excellent pain relief and his pain is almost gone completely and he denies any motor or sensory deficit he denies any numbness or tingling sensation ,he is very satisfied with the result of the treatment, he will follow up in the pain clinic when necessary
== END | disposition home or self-care (01) ==
LOC: PNWHC3 11:01
PROVIDERS: ATTEND Specialist
DX: G89.29 Other chronic pain (principal); M48.02 Spinal stenosis, cervical region; M50.30 Other cervical disc degeneration, unspecified cervical region; M47.812 Spondylosis without myelopathy or radiculopathy, cervical region
CPT/HCPCS: 99211

== ENCOUNTER → 2020-02-04 | Outpatient (CLI) | payer MEDICARE | END | disposition home or self-care (01) | LOC: LABWHC1 11:30 | PROVIDERS: ATTEND Nurse Practitioner Adult Health | DX: Z20.828 Contact with and (suspected) exposure to other viral communicable diseases (principal) | CPT/HCPCS: U0003; C9803 ==

== ENCOUNTER → 2021-02-04 | Outpatient (CLI) | payer MEDICARE ==
--- NOTE | 2021-02-04 08:27 | CT ---
EXAMINATION TYPE: CT brain wo con DATE OF EXAM: 02/04/2021 HISTORY: Transient alteration of awareness, dizziness. Left arm numbness. Days earlier. Speech diffic ulties. CT DLP: 1121 mGycm. Automated Exposure Control for Dose Reduction was Utilized. TECHNIQUE: CT scan of the head is performed without contrast. COMPARISON: CT brain June 09, 2018. FINDINGS: There is no acute intracranial hemorrhage or midline shift identified. There is mild diff use ventricular and sulcal prominence consistent with diffuse age-related cerebral atrophy. Fiore-whit e matter differentiation fairly well-maintained. Slight asymmetric prominence of CSF posterior inferi or aspect posterior fossa left greater than right could reflect arachnoid cyst or minh cisterna magna . The globes are intact and the visualized sinuses are clear. IMPRESSION: No acute intracranial hemorrhage or midline shift. No significant change from 2019 CT. No acute findings are evident.
== END | disposition home or self-care (01) ==
LOC: RADCTMAIN 07:10
PROVIDERS: ATTEND Internal Medicine
DX: R42 Dizziness and giddiness (principal); R20.0 Anesthesia of skin; R40.4 Transient alteration of awareness
CPT/HCPCS: 70450

== ENCOUNTER → 2021-03-29 | Outpatient (CLI) | payer MEDICARE ==
--- NOTE | 2021-03-29 09:57 | MR ---
EXAMINATION TYPE: MR brain wo con DATE OF EXAM: 03/29/2021 COMPARISON: CT brain February 04, 2021 and older study 2019 HISTORY: Confusion, left sided weakness. TECHNIQUE: Multiplanar, multisequence imaging of the brain and brainstem is performed without IV cont rast. FINDINGS: Diffusion weighted images demonstrate no evidence of a recent infarct or other diffusion abnormality. Persistent diffuse ventricular and sulcal prominence. Degree of ventricular dilatation slightly out o f proportion to degree of sulcal effacement and a normal pressure hydrocephalus is not excluded. No s ignificant change from prior CTs. Multifocal areas of T2 hyperintensity throughout the white matter w ith more confluent appearance at the periventricular level. Prominent CSF posterior aspect posterior fossa greater on the left is thought to reflect minh cisterna magna contiguous with CSF extending int o the upper cervical spinal canal. No significant change from 2019 CT. Midline structures demonstrate normal morphology. The craniocervical junction appears within normal limits. Normal vascular flow voids are present. The visualized sinuses are clear and the globes are i ntact. IMPRESSION: No MRI evidence for recent infarct. Mild to moderate diffuse cerebral atrophy and chronic small vessel ischemic change redemonstrated. No significant change from prior CT.
--- NOTE | 2021-03-29 10:08 | MR ---
EXAMINATION TYPE: MR angio head wo/neck wo/w con DATE OF EXAM: 03/29/2021 COMPARISON: CT neck November 02, 2018 HISTORY: Confusion, left sided weakness. TECHNIQUE: Time of flight images focusing on the [place] of [place] were performed without contrast.. MRA of the neck performed without and with IV contrast. Patient injected with 7.5 cc of gadolinium ba sed. 2-D and 3-D postprocessing imaging is performed on independent workstation. FINDINGS: Normal 3 vessel origin from aortic arch redemonstrated. No significant focal stenosis or an eurysm in the common or internal carotid arteries bilaterally including at level of carotid bulbs. Pa tent external carotid arteries bilaterally without significant stenosis. There are codominant vertebral arteries patent to basilar junction. There arm hypoplastic bilateral p osterior communicating arteries. No significant focal stenosis or aneurysm in the posterior circulati on. Images of the anterior circulation show suspected duplicated right sided anterior cerebral arteries. There is no significant focal stenosis or aneurysm in the anterior circulation. Patent anterior commu nicating artery is present. IMPRESSION: No significant stenosis in common or internal carotid arteries bilaterally. No significan t stenosis or aneurysm at the level of the [place].
== END | disposition home or self-care (01) ==
LOC: RADMRIMAIN 08:19
PROVIDERS: ATTEND Psychiatry & Neurology Neurology
DX: I67.9 Cerebrovascular disease, unspecified (principal); I65.22 Occlusion and stenosis of left carotid artery
CPT/HCPCS: 70544; 70549; 70551; A9585

== ENCOUNTER → 2021-09-04 | Outpatient (CLI) | payer MEDICARE, OTHER ==
--- NOTE | 2021-09-04 08:17 | US ---
EXAMINATION TYPE: US abdomen comp/pelvis limited DATE OF EXAM: 09/04/2021 COMPARISON: NONE CLINICAL HISTORY: Z136 AORTIC ANEURYSM. EXAM MEASUREMENTS: Liver Length: 13.7 cm Gallbladder Wall: 0.3 cm CBD: 0.4 cm Spleen: 9.7 cm Right Kidney: 9.5 x 5.1 x 5.0 cm Left Kidney: 11.8 x 5.8 x 4.7 cm Pancreas: Obscured by bowel gas Liver: wnl Gallbladder: No stones seen CBD: wnl Spleen: wnl Right Kidney: lateral lower cyst measures 0.8 x 0.8 x 0.9 cm Left Kidney: two cysts, one measures 5.2 x 3.5 x 5.1 cm, and the second measures 3.3 x 2.5 x 3.2 cm. Upper IVC: wnl Abd Aorta: obscured by bowel gas proximally, distal AAA measures 3.2 x 3.5 cm. Bladder: wnl IMPRESSION: 1. Abdominal aortic aneurysm. 2. Simple appearing renal cysts.
--- NOTE | 2021-09-04 08:18 | US ---
EXAMINATION TYPE: US thyroid st tissue head/neck DATE OF EXAM: 09/04/2021 COMPARISON: US dated 11/15/2018 CLINICAL HISTORY: [id number] HISTORY OF THYROID NODULE. GLAND SIZE: Right Lobe: 4.3 x 1.9 x 2.2 cm Overall Parenchyma: homogenous Left Lobe: 5.2 x 1.6 x 1.4 cm Overall Parenchyma: homogeneous Isthmus Thickness: 0.3 cm NODULES RIGHT: # of nodules measured on right: 0 LEFT: # of nodules measured on left: 1 1. 1.2 X 0.6 x 0.9 cm, upper mid, solid or almost completely solid, anechoic nodule, which is wider than tall, with smooth margins, without echogenic foci. Prior size: 0.9 x 0.6 x 0.5 cm ISTHMUS: # of nodules measured in the isthmus: 0 Bilateral neck scanned, no evidence of lymphadenopathy. IMPRESSION: Slight enlargement and predominantly solid left thyroid nodule. Consider tissue diagnosis.
--- NOTE | 2021-09-04 09:16 | CT ---
EXAMINATION TYPE: CT chest wo con DATE OF EXAM: 09/04/2021 COMPARISON: 11/15/2018 HISTORY: 75-year-old male Z87.898, lung nodule TECHNIQUE: Contiguous axial scanning of the chest without IV contrast. Coronal and sagittal reconstru ctions performed. CT DLP: 281.4 mGycm Automated exposure control for dose reduction was used. FINDINGS: Heart is normal size without pericardial effusion. Mild three-vessel coronary artery calcifications a re present. Ectatic ascending aorta 3.8 cm. In short vessel branching anatomy. Minimal atherosclerotic arch calci fications. Ectatic upper descending thoracic aorta 3.3 cm. Small aneurysm lower descending thoracic a leeann at 3.2 cm. No thoracic lymphadenopathy by CT size criteria. Redemonstrated 1.7 cm oval hypodense lesion anterior mediastinum, possible pericardiac cyst. Stabilit y from 11/15/2018 suggests a benign etiology. There is moderate centrilobular emphysema, predominantly in the upper lobes. Scattered 5 mm and smaller bilateral pulmonary nodules are redemonstrated, unchanged from prior. The retained secretions within the left lower lobe segmental branches. No consolidation or pleural ef fusion. Lobulated aneurysms infrarenal abdominal aorta partially visualized measuring up to 3.3 cm, coronal i mage 45 and up to 3.1 cm just below, coronal image 45. Superior aneurysmal dilatation suspected to hartman ve enlarged in the interval previously measuring approximately 3.0 cm. A complex cysts are redemonstrated laterally from the left kidney measuring up to 4.9 and 2.5 cm. Mil d to moderate stool burden. Bones: No osseous destructive process. IMPRESSION: 1. COPD WITH MODERATE UPPER LUNG PREDOMINANT EMPHYSEMA. 2. SCATTERED 4 MM BILATERAL PULMONARY NODULES, UNCHANGED FROM 2019 SUGGESTING A BENIGN ETIOLOGY. THE PATIENT MAY QUALIFY FOR ANNUAL LUNG CANCER SCREENING CT. CORRELATE. 3. UNCHANGED 1.7 CM HYPODENSE, LIKELY CYSTIC LESION OF THE ANTERIOR MEDIASTINUM, POSSIBLE PERICARDIAC CYST. 4. LOBULATED ANEURYSMS INFRARENAL ABDOMINAL AORTA PARTIALLY VISUALIZED MEASURING UP TO 3.3 CM. THIS M AY HAVE ENLARGED FROM 3.0 CM, PREVIOUSLY. CONSIDER REFERRAL TO VASCULAR SURGERY FOR SUBSEQUENT FOLLOW -UP.
[2021-09-04 11:04] LABS: ALT 17 U/L (10-49); AST 58 U/L (14-35); African American GFR (CKD) 96.5 (60.0-200.0); Albumin 4.2 g/dL (3.8-4.9); Albumin/Globulin Ratio 1.56 (1.60-3.17); Alkaline Phosphatase 76 U/L (41-126); BUN/Creat Ratio 15.22 Ratio (12.00-20.00); Blood Urea Nitrogen 13.7 mg/dL (9.0-27.0); Calcium 9.3 mg/dL (8.7-10.3); Carbon Dioxide 24.8 mmol/L (20.0-27.5); Chloride 104 mmol/L (96-109); Chol/HDL Ratio 2.18 Ratio; Globulin 2.7 g/dL (1.6-3.3); Glucose 79 mg/dL (70-110); LDL Cholesterol,Calculated 58.9 mg/dL (0.0-131.0); Non-African American GFR(CKD) 83.3 (60.0-200.0); Potassium 4.3 mmol/L (3.5-5.5); Sodium 139 mmol/L (135-145); Total Protein 6.9 g/dL (6.2-8.2); VLDL Calculation 19.46 mg/dL (5.00-40.00)
[2021-09-04 12:56] LABS: Basophils # (A) 0.05 X 10*3/uL (0.00-0.10); Basophils % (A) 1.1 %; Eosinophils # (A) 0.25 X 10*3/uL (0.04-0.35); Eosinophils % (A) 5.4 %; HCT 43.7 % (39.6-50.0); HGB 13.9 g/dL (13.0-17.0); Immature Grans, Automated 0.2 %; Lymphocytes # (A) 0.97 X 10*3/uL (0.90-5.00); MCHC 31.8 g/dL (32.0-37.0); MCV 94.2 fL (80.0-97.0); Mean Platelet Volume 11.1 fL (9.5-12.2); Monocytes # (A) 0.37 X 10*3/uL (0.20-1.00); NRBC Per 100 WBC 0 /100 WBCS (0.0-0.0); Neutrophils # (A) 2.97 X 10*3/uL (1.80-7.70); Neutrophils % (A) 64.3 %; Platelet Count 126 X 10*3/uL (140-440); RBC 4.64 X 10*6/uL (4.40-5.60); RDW 13.7 % (11.5-14.5); WBC 4.62 X 10*3/uL (4.50-10.00)
== END | disposition home or self-care (01) ==
LOC: RADUSWWP 06:39
PROVIDERS: ATTEND Internal Medicine
DX: R91.8 Other nonspecific abnormal finding of lung field (principal); J43.9 Emphysema, unspecified; I71.4 Abdominal aortic aneurysm, without rupture; N28.1 Cyst of kidney, acquired
CPT/HCPCS: 71250; 76536; 76700; 76857; 80053; 80061; 84153; 84443; 85025

== ENCOUNTER 2021-09-17 08:47 | Day surgery (SDC) | payer MEDICARE, OTHER ==
[2021-09-17 09:21] VITALS: RESP 18; TEMP 97.6
[2021-09-17 10:45] VITALS: BP 142/85; PULSE 54
--- NOTE | 2021-09-17 12:06 | US ---
ULTRASOUND GUIDED FNA THYROID BIOPSY: CLINICAL HISTORY: Left thyroid nodule FINDINGS: The procedure was explained to the patient. The risks, complications, benefits and alternatives were discussed and any questions were answered. Informed consent was obtained. Patient was placed supin e on the ultrasound table and prepped and draped in the usual sterile fashion. Utilizing a 25 gauge needle, five passes were made into the requested left thyroid nodule. Patient was stable throughout the procedure. Pathology is pending. All elements of maximal barrier technique were utilized. IMPRESSION: 1. Successful ultrasound guided FNA thyroid biopsy.
== END 2021-09-17 10:35 | disposition home or self-care (01) ==
LOC: RADPROMAIN 08:47
PROVIDERS: ATTEND Internal Medicine
DX: E04.1 Nontoxic single thyroid nodule (principal)
CPT/HCPCS: 10005; 36415; 88173; 88305

== ENCOUNTER → 2022-03-23 | Outpatient (CLI) | payer MEDICARE ==
--- NOTE | 2022-03-23 12:46 | US ---
EXAMINATION TYPE: US thyroid st tissue head/neck DATE OF EXAM: 03/23/2022 COMPARISON: Thyroid ultrasound September 04, 2021 CLINICAL HISTORY: E04.1 thyroid nodule. f/u GLAND SIZE: Right Lobe: 4.0 x 1.1 x 1.4 cm Overall Parenchyma: homogenous Left Lobe: 4.2 x 1.0 x 2.5 cm Overall Parenchyma: homogeneous Isthmus Thickness: 0.3 cm NODULES RIGHT: # of nodules measured on right: 0 LEFT: # of nodules measured on left: 1 - previously biopsy 1. 1.1 X 0.8 x 0.7 cm, upper, cystic or almost completely cystic, anechoic nodule, which is wider t aaron tall, with smooth margins, without echogenic foci. Prior size: 1.2 x 0.6 x 0.9 cm ISTHMUS: # of nodules measured in the isthmus: 0 Bilateral neck scanned, no evidence of lymphadenopathy. Homogeneous somewhat small size thyroid with stable 1.1 cm cystic nodule right thyroid lobe and scatt ered tiny nodules seen on images saved. IMPRESSION: As above. No new significant nodules noted.
== END | disposition home or self-care (01) ==
LOC: RADUSWWP 12:06
PROVIDERS: ATTEND Internal Medicine
DX: E04.1 Nontoxic single thyroid nodule (principal)
CPT/HCPCS: 76536

== ENCOUNTER → 2022-09-28 | Outpatient (CLI) | payer MEDICARE ==
--- NOTE | 2022-09-28 10:19 | CT ---
EXAMINATION TYPE: CT chest wo con DATE OF EXAM: 09/28/2022 COMPARISON: 09/04/2021 HISTORY: Solitary pulmonary nodule. CT DLP: 406 mGycm. Automated Exposure Control for Dose Reduction was Utilized. TECHNIQUE: CT scan of the thorax is performed without IV contrast. FINDINGS: Heart is normal size without pericardial effusion. Mild three-vessel coronary artery calcifications a re present. Ectatic ascending aorta 3.8 cm. In short vessel branching anatomy. Minimal atheroscleroti c arch calcifications. Ectatic upper descending thoracic aorta 3.3 cm. Small aneurysm lower descending thoracic aorta at 3.2 cm. No thoracic lymphadenopathy by CT size criteria. Redemonstrated 1.7 cm oval hypodense lesion anterior mediastinum, possible pericardiac cyst or low density.. Stability from 11/15/2018 suggests a benign e tiology. There is moderate centrilobular emphysema, predominantly in the upper lobes. Scattered 5 mm and small er bilateral pulmonary nodules are redemonstrated, unchanged from prior. The retained secretions within the left lower lobe segmental branches. No consolidation or pleural ef fusion. Upper abdominal aorta is mildly aneurysmal measuring 3.1 cm stable. More distal area described on bj or CT chest included [id number]. The millimeter exophytic midpole posterior left renal lesion measures 6. Partial inclusion of an exop hytic cyst not entirely included in view. Hepatic granuloma. No definite gallstone. Bones: No osseous destructive process. Hypertrophic and degenerative changes of the spine. IMPRESSION: 1 COPD WITH MODERATE CENTRILOBULAR\PARASEPTAL EMPHYSEMA. 2. SCATTERED 4 OR LESS BILATERAL PULMONARY NODULES ARE STABLE FROM PRIOR EXAM. THE PATIENT MAY QUALIF Y FOR ANNUAL LUNG CANCER SCREENING CT. 3. UNCHANGED 1.7 CM HYPODENSE, LIKELY CYSTIC LESION OF THE ANTERIOR MEDIASTINUM, POSSIBLE PERICARDIAC CYST. .
== END | disposition home or self-care (01) ==
LOC: RADCTMAIN 08:55
PROVIDERS: ATTEND Internal Medicine
DX: J43.2 Centrilobular emphysema (principal); R91.8 Other nonspecific abnormal finding of lung field; J98.59 Other diseases of mediastinum, not elsewhere classified
CPT/HCPCS: 71250

== ENCOUNTER 2023-08-11 22:35 | Observation (INO) | payer MEDICARE ==
--- NOTE | 2023-08-11 22:40 | ED ---
Chest Pain HPI - General Stated Complaint: Generalized weakness Time Seen by Provider: 08/11/23 22:40 - History of Present Illness Initial Comments: Is a 77-year-old man who presents the ER today for evaluation of chest pain. Patient reports that for the past 3 weeks he has been having episodes of sharp stabbing chest pain. Sometimes it starts in the mid chest and radiates out. Patient reports the pain occurs without provocation it is not exertional it is not postprandial. Pain usually lasts for minutes and resolves spontaneously. Patient states that the pain seems to be getting more frequent and more intense. Today has had multiple episodes of pain in the last 1 lasting over 15 minutes in which he told his about this pain for the first time and she insisted he come to the hospital for evaluation. Patient has a long history of alcohol and tobacco abuse. Currently is not established with a environmental studies program director. Patient also notes that today he has been feeling quite lightheaded especially with any standing up or walking. His son-in-law at bedside notes that he is required assistance when getting up to use the restroom this evening. - Related Data Home Medications Medication Instructions Recorded Confirmed Atorvastatin Calcium [Lipitor] 20 mg PO HS 06/09/18 09/17/21 Citalopram Hydrobromide 40 mg PO HS 06/09/18 09/17/21 [Citalopram HBr] Omeprazole 20 mg PO QAM 06/09/18 09/17/21 Tamsulosin HCl [Flomax] 0.4 mg PO DAILY 06/09/18 09/17/21 Aspirin [Adult Low Dose Aspirin EC] 81 mg PO DAILY 09/14/21 09/17/21 Allergies Allergy/AdvReac Type Severity Reaction Status Date / Time No Known Allergies Allergy Verified 09/17/21 09:44 Review of Systems ROS Statement: Those systems with pertinent positive or pertinent negative responses have been documented in the HPI. ROS Other: All systems not noted in ROS Statement are negative. EKG Findings - EKG Comments: EKG Findings:: EKG interpreted by me, EKG obtained due to complaint of weakness EKG obtained at 2238 rate is 53 rhythm is sinus bradycardia with a leftward axis, OH 162 QRS 86 QTc 427 there are no acute ST elevations or depressions there is no evidence of ischemia or infarction. Past Medical History Past Medical History: GERD/Reflux, Hyperlipidemia, Musculoskeletal Disorder, Prostate Disorder, Skin Disorder, Thyroid Disorder Additional Past Medical History / Comment(s): Mild-moderate hearing loss. BPH. DDD, Spinal stenosis C5-6, C6-7. Psoriasis type rash on legs, thyroid nodules History of Any Multi-Drug Resistant Organisms: None Reported Past Surgical History: No Surgical Hx Reported Additional Past Surgical History / Comment(s): [facility] procedure, Carotid SX LT SIDE, EGD Past Anesthesia/Blood Transfusion Reactions: No Reported Reaction Past Psychological History: Depression Smoking Status: Current every day smoker Past Alcohol Use History: Occasional Additional Past Alcohol Use History / Comment(s): SMOKING <1/2 PPD=FOR 35 YEARS, cut down to 5 cigarettes per day Past Drug Use History: None Reported - Past Family History Father Family Medical History: Cancer General Exam - General Exam Comments Initial Comments: Physical Exam GENERAL: Elderly thin male appears chronically ill HENT: Normocephalic, Atraumatic. EYES: PERRL, EOMI PULMONARY: Unlabored respirations. No audible rales rhonchi or wheezing was noted. CARDIOVASCULAR: Regular rate and rhythm ABDOMEN: Soft and nontender with normal bowel sounds. SKIN: Skin is clear with no lesions or rashes and otherwise unremarkable. : Deferred NEUROLOGIC: Patient is alert and oriented x3. Moving all extremities spontaneously MUSCULOSKELETAL: Normal extremities with adequate strength and full range of motion. No lower extremity swelling or edema. No calf tenderness. PSYCHIATRIC: Normal psychiatric evaluation. Course Vital Signs 08/11/23 08/12/23 08/12/23 22:37 00:19 03:00 Temperature 98.4 F Pulse Rate 54 L 53 L 61 Respiratory 16 16 16 Rate Blood Pressure 151/90 139/87 150/97 O2 Sat by Pulse 99 97 Oximetry Chest Pain MDM - MDM Was pt. sent in by a medical professional or institution (, PA, CAMPGROUND CLEANING ATTENDANT, urgent c are, hospital, or intermediate...) When possible be specific @ -No Did you speak to anyone other than the patient for history (EMS, parent, family, police, friend...)? What history was obtained from this source @ -Family at bedside Did you review nursing and triage notes (agree or disagree)? Why? @ -I reviewed and agree with nursing and triage notes Were old charts reviewed (outside hosp., previous admission, EMS record, old EKG, old radiological studies, urgent care reports/EKG's, intermediate records)? Report findings @ -Previous charts were reviewed or any previous cardiac workup Differential Diagnosis (chest pain, altered mental status, abdominal pain women, abdominal pain men, vaginal bleeding, weakness, fever, dyspnea, syncope, headache, dizziness, GI bleed, back pain, seizure, CVA, palpatations, mental health)? @ -Differential Chest Pain: Stable Angina, Unstable Angina, STEMI, NSTEMI Aortic Dissection, Pneumothorax, Musculoskeletal, Esophageal Spasm GERD, Cholecystitis, Pancreatitis, Zoster, this is not meant to be an all-inclusive list. EKG interpreted by me (3pts min.). @ -As above X-rays interpreted by me (1pt min.). @ -No acute findings CT interpreted by me (1pt min.). @ -None done U/S interpreted by me (1pt. min.). @ -None done What testing was considered but not performed or refused? (CT, X-rays, U/S, labs)? Why? @ -None What meds were considered but not given or refused? Why? @ -Aspirin, patient was given full dose aspirin at home prior to arrival Did you discuss the management of the patient with other professionals (professionals i.e. , PA, CAMPGROUND CLEANING ATTENDANT, lab, RT, psych nurse, social work nurse, furnace hand, teacher, patrol officer, high risk case manager)? Give summary @ -No Was smoking cessation discussed for >3mins.? @ -Yes Was critical care preformed (if so, how long)? @ -No Were there social determinants of health that impacted care today? How? (Homelessness, low income, unemployed, alcoholism, drug addiction, transportation, low edu. Level, literacy, decrease access to med. care, assisted, rehab)? @ -Alcoholism, tobacco abuse Was there de-escalation of care discussed even if they declined (Discuss DNR or withdrawal of care, Hospice)? DNR status @ -No What co-morbidities impacted this encounter? (DM, HTN, Smoking, COPD, CAD, Cancer, CVA, ARF, Chemo, Hep., AIDS, mental health diagnosis, sleep apnea, morbid obesity)? @ -Hypertension, COPD Was patient admitted / discharged? Hospital course, mention meds given and route, prescriptions, significant lab abnormalities, going to OR and other pertinent info. @ -Admit Patient was seen and evaluated history was obtained from patient and family at bedside. Patient with episodes of chest pain intermittently for the past 3 weeks seem to be increasing in frequency and severity. Patient noted to be bradycardic here and while he has a normal blood pressure he does have orthostatic lightheadedness. Labs were obtained and were unremarkable. CT scan of the abdomen was obtained as the patient does have a history of alcohol abuse and does complain that the pain sometimes starts in the epigastrium. There is some gastric thickening concerning for gastritis but no signs of perforation or pancreatic abnormality. Patient was treated with IV Protonix. Patient will be admitted for observation and cardiology evaluation for his chest pain, bradycardia and lightheadedness. Dr. Block accepts the admission Undiagnosed new problem with uncertain prognosis? @ -No Drug Therapy requiring intensive monitoring for toxicity (Heparin, Nitro, Insulin, Cardizem)? @ -No Were any procedures done? @ -No Diagnosis/symptom? @ Bradycardia, chest pain Acute, or Chronic, or Acute on Chronic? @ -Acute Uncomplicated (without systemic symptoms) or Complicated (systemic symptoms)? @ -Default Side effects of treatment? @ -No Exacerbation, Progression, or Severe Exacerbation? @ -No Poses a threat to life or bodily function? How? (Chest pain, [place], NH, pneumonia, PE, COPD, DKA, ARF, appy, cholecystitis, CVA, Diverticulitis, Homicidal, Suicidal, threat to staff... and all critical care pts) @ -Potentially, chest pain could be indicative of myocardial ischemia Disposition Clinical Impression: Chest pain at rest, Bradycardia, Tobacco abuse, Alcohol abuse, Lightheadedness Disposition: ADMITTED IP TO THIS HOSP Condition: Serious Is patient prescribed a controlled substance at d/c from ED?: No
[2023-08-11 22:42] LABS: Glucose,Whole Blood 95 mg/dL (70-110)
[2023-08-11 23:02] LABS: Basophils # (A) 0.1 k/uL (0-0.2); Basophils % (A) 2 %; Eosinophils # (A) 0.3 k/uL (0-0.7); Eosinophils % (A) 6 %; HCT 39.8 % (39.0-53.0); HGB 12.9 gm/dL (13.0-17.5); Lymphocytes # (A) 1.5 k/uL (1.0-4.8); Lymphocytes % (A) 34 %; MCH 31.1 pg (25.0-35.0); MCHC 32.6 g/dL (31.0-37.0); MCV 95.4 fL (80.0-100.0); Mean Platelet Volume 8.5; Monocytes # (A) 0.3 k/uL (0-1.0); Monocytes % (A) 7 %; Neutrophils # (A) 2.2 k/uL (1.3-7.7); Neutrophils % (A) 50 %; Platelet Count 100 k/uL (150-450); RBC 4.17 m/uL (4.30-5.90); RDW 13.2 % (11.5-15.5); WBC 4.5 k/uL (3.8-10.6)
[2023-08-11 23:05] LABS: ALT 13 U/L (4-49); AST 38 U/L (17-59); African American GFR (CKD) >90 (>60 ml/min/1.73 sqM); Albumin 3.5 g/dL (3.5-5.0); Alkaline Phosphatase 65 U/L (38-126); Anion Gap 4 mmol/L; Blood Urea Nitrogen 18 mg/dL (9-20); Calcium 8.9 mg/dL (8.4-10.2); Carbon Dioxide 23 mmol/L (22-30); Chloride 110 mmol/L (98-107); Glucose 89 mg/dL (74-99); Magnesium 2.1 mg/dL (1.6-2.3); Non-African American GFR(CKD) 80 (>60 ml/min/1.73 sqM); Potassium 3.7 mmol/L (3.5-5.1); Sodium 137 mmol/L (137-145); Total Bilirubin 0.3 mg/dL (0.2-1.3); Total Protein 6.1 g/dL (6.3-8.2)
[2023-08-11 23:06] LABS: Partial Thromboplastin Time 22.5 sec (22.0-30.0); Prothrombin Time 11.1 sec (10.0-12.5)
[2023-08-11 23:14] LABS: NT-Pro-B-Type Natriuretic Pept 103 pg/mL
--- NOTE | 2023-08-12 00:32 | XR ---
EXAM: XR Chest, 2 Views CLINICAL HISTORY: ITS.REASON XR Reason: Chest Pain TECHNIQUE: Frontal and lateral views of the chest. COMPARISON: No relevant prior studies available. FINDINGS: Lungs: Unremarkable. No consolidation. Pleural space: Unremarkable. No pneumothorax. Heart: Unremarkable. No cardiomegaly. Mediastinum: Unremarkable. Normal mediastinal contour. Bones/joints: Unremarkable. No acute fracture. IMPRESSION: No consolidation.
--- NOTE | 2023-08-12 02:07 | CT ---
EXAM: CT Abdomen and Pelvis With Intravenous Contrast CLINICAL HISTORY: ITS.REASON CT Reason: epigastric pain radiating to shoulder - hx alcohol TECHNIQUE: Axial computed tomography images of the abdomen and pelvis with intravenous contrast. CTDI is 15.8 mGy and DLP is 692.8 mGy-cm. This CT exam was performed using one or more of the following dose reduction techniques: automated exposure control, adjustment of the mA and/or kV according to patient size, and/or use of iterative reconstruction technique. COMPARISON: No relevant prior studies available. FINDINGS: ABDOMEN: Liver: Unremarkable. Gallbladder and bile ducts: Unremarkable. Pancreas: Unremarkable. Spleen: Unremarkable. Adrenals: Unremarkable. Kidneys and ureters: No hydronephrosis. Left-sided Cysts. Stomach and bowel: No bowel obstruction. Thickened stomach wall. Colonic diverticulosis. PELVIS: Appendix: No evidence of appendicitis. Bladder: Thickened bladder wall. Reproductive: Mildly enlarged prostate. ABDOMEN and PELVIS: Intraperitoneal space: Unremarkable. Bones/joints: No acute fractures. Soft tissues: Unremarkable. Vasculature: 3.1 cm and 3.4 cm saccular aortic aneurysms. Bilateral common iliac aneurysm. Lymph nodes: No enlarged lymph nodes. IMPRESSION: 1. Thickened stomach, correlate with gastritis versus underdistention. 2. 3.1 cm and 3.4 cm saccular aortic aneurysms. Bilateral common iliac aneurysm. 3. Colonic diverticulosis. 4. Mildly thickened bladder. Correlate with cystitis versus underdistention versus chronic changes.
[2023-08-12] MEDS ORDERED: NALOXONE 0.4 MG/ML 1 ML VIAL IV PRN (02:30)
[2023-08-12] MEDS: SODIUM CHLORIDE 0.9% 1,000 ML IV SCH (02:50)
[2023-08-12] MEDS ORDERED: diphenhydrAMINE 25 MG CAP PO ONE (03:00)
--- NOTE | 2023-08-12 06:42 | P.HPIM ---
History of Present Illness H&P Date: 08/12/23 Chief Complaint: chest pain 77-year-old male presents follow-up with doctors Patient coming in reporting right-sided abdominal and chest pain he describes the episodes as sharp pain that sometimes starts in his right lower quadrant and then spreads out to the chest other times which started in the right side of the chest and radiates to his right shoulder pain is severe 8 out of 10 in severity but lasts only for few minutes and goes away this has been going on for few m onths sporadically however yesterday he had 4 episodes throughout the day and then his insisted that he goes to the hospital for evaluation the first episode started in the morning around 9 AM before eating breakfast he was resting doing nothing and lasted for few minutes the longest episode yesterday lasted about 15 minutes he takes nothing for them he has not seen a doctor for it denies any injuries or falls. Moreover he reports that he has been feeling tired and dizzy and off balance all day yesterday but denies any falls or head injury These episodes are not precipitated by any activity or food however he was concerned regarding his history of intra-abdominal bleed which is a remote requiring surgery for which she decided to come in for evaluation Patient admits to smoking and occasional alcohol denies any drugs Patient denies any GI bleeding denies any melena denies any nausea or vomiting denies any fevers chills denies any shortness of breath denies any palpitations review of systems Pertinent positives as noted in HPI. All other systems were reviewed and are negative on exam Constitutional: No acute distress, conversant, pleasant Eyes: Anicteric sclerae, moist conjunctiva, Pupils equal round reactive to light ENMT: NC/AT Oropharynx clear, no erythema, or exudates Neck: Supple, no masses, or JVD No carotid bruits No thyromegaly Lungs: Clear to auscultation Clear to percussion Normal respiratory effort, no accessory muscle use Cardiovascular: Heart regular in rate and rhythm, No murmurs, gallops, or rubs No peripheral edema Abdominal: Soft Nontender, no guarding, rebound or rigidity Abdomen moving with respiration Normoactive bowel sounds Increased note to tympanic percussion right side of the abdomen Extremities: No digital cyanosis No clubbing Pedal pulses intact and symmetrical Radial pulses intact and symmetrical No calf tenderness Psychiatric: Alert and oriented to person, place and time Appropriate affect fair judgement Neuro Muscles Strength 5/5 in all 4 extremities Sensation to light touch grossly present throughout Cranial nerves II-XII grossly intact Past Medical History Past Medical History: GERD/Reflux, Hyperlipidemia, Musculoskeletal Disorder, Prostate Disorder, Skin Disorder, Thyroid Disorder Additional Past Medical History / Comment(s): Mild-moderate hearing loss. BPH. DDD, Spinal stenosis C5-6, C6-7. Psoriasis type rash on legs, thyroid nodules History of Any Multi-Drug Resistant Organisms: None Reported Past Surgical History: No Surgical Hx Reported Additional Past Surgical History / Comment(s): [facility] procedure, Carotid SX LT SIDE, EGD Past Anesthesia/Blood Transfusion Reactions: No Reported Reaction Past Psychological History: Depression Smoking Status: Current every day smoker Past Alcohol Use History: Occasional Additional Past Alcohol Use History / Comment(s): SMOKING <1/2 PPD=FOR 35 YEARS, cut down to 5 cigarettes per day Past Drug Use History: None Reported - Past Family History Father Family Medical History: Cancer Medications and Allergies Home Medications Medication Instructions Recorded Confirmed Type Atorvastatin Calcium [Lipitor] 20 mg PO HS 06/09/18 09/17/21 History Citalopram Hydrobromide 40 mg PO HS 06/09/18 09/17/21 History [Citalopram HBr] Omeprazole 20 mg PO QAM 06/09/18 09/17/21 History Tamsulosin HCl [Flomax] 0.4 mg PO DAILY 06/09/18 09/17/21 History Aspirin [Adult Low Dose Aspirin EC] 81 mg PO DAILY 09/14/21 09/17/21 History Allergies Allergy/AdvReac Type Severity Reaction Status Date / Time No Known Allergies Allergy Verified 09/17/21 09:44 Physical Exam Vitals: Vital Signs Temp Pulse Resp BP Pulse Ox 08/12/23 03:00 61 16 150/97 08/12/23 00:19 53 L 16 139/87 97 08/11/23 22:37 98.4 F 54 L 16 151/90 99 Intake and Output 08/11/23 08/11/23 08/12/23 14:59 22:59 06:59 Other: Weight 74.843 kg Results CBC & Chem 7: 08/11/23 22:44 08/11/23 22:44 Labs: Abnormal Lab Results - Last 24 Hours (Table) 08/11/23 08/11/23 Range/Units 22:44 22:44 RBC 4.17 L (4.30-5.90) m/uL Hgb 12.9 L (13.0-17.5) gm/dL Plt Count 100 L (150-450) k/uL Chloride 110 H (98-107) mmol/L Total Protein 6.1 L (6.3-8.2) g/dL Assessment and Plan Assessment: 77-year-old male with history of GERD and TIA coming in for right-sided chest and abdominal pain I discussed the case with ED doctor and accepted the admission for atypical chest pain to rule out acute coronary syndrome with an ticipated length of stay less than 2 midnights Atypical right-sided chest pain Right-sided abdominal pain, possible gastritis History of GERD EKG sinus bradycardia CT scan of the abdomen showed thickened stomach possible gastritis, 3.1 and 3.4 saccular aortic aneurysm bilateral common iliac aneurysm. Colonic diverticulosis. Thickened bladder Tropes are negative continue to trend Cardiology consult Monitor vital signs Protonix 40 mg IV push daily IV fluid hydration normal saline 75 cc/h Continue with aspirin and statin BPH Continue with Flomax CT scan showed mild thickened bladder Incidental finding of saccular aneurysm of the aorta Vascular surgery evaluation Thrombocytopenia with platelet count of 100 Possibly related to his history of alcohol abuse Blood work otherwise unremarkable white count 4.5 hemoglobin 12.9 Renal function unremarkable sodium 137 potassium 3.7 BUN 18 creatinine 0.9 Full code DVT prophylaxis heparin subcu 3 times daily
[2023-08-12] MEDS: PANTOPRAZOLE 40 MG/10 ML VIAL IV SCH (08:19)
[2023-08-12] MEDS: TAMSULOSIN 0.4 MG CAP.ER.24H PO SCH (08:20)
[2023-08-12] MEDS: HEPARIN SODIUM,PORCINE 5,000 UNIT/ML 1 ML VIAL SQ SCH (08:20)
[2023-08-12] MEDS ORDERED: NON FORMULARY DRUG (Aspirin [Adult Low Dose Aspirin Ec] 81 MG Tablet) PO SCH (09:00)
[2023-08-12 11:02] VITALS: RESP 18
--- NOTE | 2023-08-12 11:47 | P.CRDCN ---
History of Present Illness History of present illness: HISTORY OF PRESENT ILLNESS: This is a 77-year-old male with a past medical history significant for hyperlipidemia. 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 We have been asked to see the patient in consultation for chest pain, bradycardia. Patient examined at the bedside in the emergency room. Family is present. He states he has been having intermittent chest pains over the past few months. He states the pain is always on the right side of his chest. He states it usually only lasts a few minutes it lasted for about 15 minutes. He states he was doing some yard work earlier in the day. He does report that he felt nauseated at that time. No vomiting. He denied feeling diaphoretic. He does report shortness of breath with exertion which is chronic for him. He feels like these episodes occur when he is anxious or if he is rushing to do something. He states if he "over does it" during the day, he ends up having chest pain later in the day. He feels well at the time of examination with no complaints of chest pain or pressure. DIAGNOSTICS: - EKG reveals sinus bradycardia with no signs of acute ischemia. - Chest xray negative for acute process. -CT abdomen pelvis: Thickened stomach, correlate for gastritis versus underdistention. 3.1 cm and 3.4 cm saccular aortic aneurysms, bilateral common iliac aneurysm. Colonic diverticulosis. Mildly thickened bladder. - Laboratory data: WBC 4.5. Hemoglobin 12.9. Platelet count 100. Sodium 137. Potassium 3.7. BUN 18. Creatinine 0.92. Troponin negative x 3. proBNP 103. - Current home cardiac medications include Lipitor 20 mg at night. - No previous echocardiogram available in EMR for review - Patient underwent Lexiscan stress test in November 2022 which was negative for ischemia REVIEW OF SYSTEMS: At the time of my exam: CONSTITUTIONAL: Denies fever or chills. HEENT: Denies blurred vision, vision changes, or eye pain. Denies hemoptysis CARDIOVASCULAR: Denies chest pain. Denies orthopnea. Denies PND. Denies palpitations RESPIRATORY: Denies shortness of breath. GASTROINTESTINAL: Denies abdominal pain. Denies nausea or vomiting. HEMATOLOGIC: Denies bleeding disorders. GENITOURINARY: Denies any blood in urine. SKIN: Denies pruitis. Denies rash. PHYSICAL EXAM: VITAL SIGNS: Reviewed. GENERAL: Well-developed in no acute distress. HEENT: Head is normocephalic. Pupils are equal, round. Sclerae anicteric. Mucous membranes of the mouth are moist. Neck supple. No JVD or thyromegaly LUNGS: Respirations even and unlabored. Lungs essentially clear to auscultation bilaterally. HEART: Regular rate and rhythm. S1 and S2 heard. ABDOMEN: Soft. Nondistended. Nontender. EXTREMITIES: Normal range of motion. No clubbing or cyanosis. Peripheral pulses intact. No lower extremity edema NEUROLOGIC: Awake and alert. Oriented x 3. ASSESSMENT: Chest pain, atypical, troponin negative x 3 Asymptomatic bradycardia Hyperlipidemia Saccular aortic aneurysm and bilateral common iliac aneurysm, per CT Nicotine dependence, 1 PPD History of alcohol abuse per documentation, patient denies History of carotid stenosis with previous surgical intervention History of TIA x 2 Anxiety History of BPH PLAN: An acute coronary but has been ruled out Obtain 2D echo to assess cardiac structure and function Resume home cardiac medications No need to repeat stress testing as this was completed in 11/2022 Discussed possibility of cardiac cath with patient and his family. Patient is declining cardiac cath at this time which is reasonable considering his symptoms. Patient was instructed to come back to the ER if his symptoms reoccur. Patient to follow up in the office with Dr. Devries Nurse practitioner note has been reviewed by physician. Signing provider agrees with the documented findings, assessment, and plan of care documented by DEALER ACCOUNT MANAGER as a scribe. Past Medical History Past Medical History: GERD/Reflux, Hyperlipidemia, Musculoskeletal Disorder, Prostate Disorder, Skin Disorder, Thyroid Disorder Additional Past Medical History / Comment(s): Mild-moderate hearing loss. BPH. DDD, Spinal stenosis C5-6, C6-7. Psoriasis type rash on legs, thyroid nodules History of Any Multi-Drug Resistant Organisms: None Reported Past Surgical History: No Surgical Hx Reported Additional Past Surgical History / Comment(s): [facility] procedure, Carotid SX LT SIDE, EGD Past Anesthesia/Blood Transfusion Reactions: No Reported Reaction Past Psychological History: Depression Smoking Status: Current every day smoker Past Alcohol Use History: Occasional Additional Past Alcohol Use History / Comment(s): SMOKING <1/2 PPD=FOR 35 YEARS, cut down to 5 cigarettes per day Past Drug Use History: None Reported - Past Family History Father Family Medical History: Cancer Medications and Allergies Home Medications Medication Instructions Recorded Confirmed Type Atorvastatin Calcium [Lipitor] 20 mg PO HS 06/09/18 08/12/23 History Citalopram Hydrobromide 40 mg PO HS 06/09/18 08/12/23 History [Citalopram HBr] Omeprazole 20 mg PO DAILY 06/09/18 08/12/23 History Tamsulosin HCl [Flomax] 0.4 mg PO BID 06/09/18 08/12/23 History Allergies Allergy/AdvReac Type Severity Reaction Status Date / Time No Known Allergies Allergy Verified 08/12/23 08:00 Physical Exam Vitals: Vital Signs Temp Pulse Resp BP Pulse Ox 08/12/23 06:00 98.6 F 54 L 16 150/95 97 08/12/23 03:00 61 16 150/97 08/12/23 00:19 53 L 16 139/87 97 08/11/23 22:37 98.4 F 54 L 16 151/90 99 Intake and Output 08/11/23 08/12/23 08/12/23 22:59 06:59 14:59 Other: Weight 74.843 kg Results 08/11/23 22:44 08/11/23 22:44 Cardiac Enzymes 08/11/23 08/11/23 08/12/23 Range/Units 22:44 22:44 04:39 AST 38 (17-59) U/L Troponin I <0.012 <0.012 (0.000-0.034) ng/mL 08/12/23 Range/Units 05:42 AST (17-59) U/L Troponin I <0.012 (0.000-0.034) ng/mL Coagulation 08/11/23 Range/Units 22:44 PT 11.1 (10.0-12.5) sec APTT 22.5 (22.0-30.0) sec CBC 08/11/23 Range/Units 22:44 WBC 4.5 (3.8-10.6) k/uL RBC 4.17 L (4.30-5.90) m/uL Hgb 12.9 L (13.0-17.5) gm/dL Hct 39.8 (39.0-53.0) % Plt Count 100 L (150-450) k/uL Comprehensive Metabolic Panel 08/11/23 Range/Units 22:44 Sodium 137 (137-145) mmol/L Potassium 3.7 (3.5-5.1) mmol/L Chloride 110 H (98-107) mmol/L Carbon Dioxide 23 (22-30) mmol/L BUN 18 (9-20) mg/dL Creatinine 0.92 (0.66-1.25) mg/dL Glucose 89 (74-99) mg/dL Calcium 8.9 (8.4-10.2) mg/dL AST 38 (17-59) U/L ALT 13 (4-49) U/L Alkaline Phosphatase 65 (38-126) U/L Total Protein 6.1 L (6.3-8.2) g/dL Albumin 3.5 (3.5-5.0) g/dL Current Medications Generic Name Dose Route Start Last Admin Trade Name Freq PRN Reason Stop Dose Admin Atorvastatin Calcium 20 mg 08/12/23 21:00 Atorvastatin 20 Mg Tab PO HS NEHAL Heparin Sodium (Porcine) 5,000 unit 08/12/23 08:00 Heparin Sodium,Porcine 5,000 Unit/Ml 1 Ml Vial SQ Q8HR NEHAL Sodium Chloride 1,000 mls @ 75 mls/hr 08/12/23 02:30 08/12/23 02:50 Saline 0.9% IV 75 mls/hr .[id number] NEHAL Administration Naloxone HCl 0.2 mg 08/12/23 02:30 Naloxone 0.4 Mg/Ml 1 Ml Vial IV Q2M PRN Opioid Reversal Non-Formulary Medication 81 mg 08/12/23 09:00 Aspirin [Adult Low Dose Aspirin Ec] PO DAILY NEHAL Pantoprazole Sodium 40 mg 08/12/23 09:00 Pantoprazole 40 Mg/10 Ml Vial IV DAILY NEHAL Tamsulosin HCl 0.4 mg 08/12/23 09:00 Tamsulosin 0.4 Mg Cap.Er.24h PO DAILY NEHAL Intake and Output 08/11/23 08/12/23 08/12/23 22:59 06:59 14:59 Other: Weight 74.843 kg 08/11/23 22:44 08/11/23 22:44
[2023-08-12] MEDS: MAG HYDROX/AL HYDROX/SIMETH 30 ML, HYOSCYAMINE ELIXIR 10 ML, LIDOCAINE VISCOUS 10 ML PO ONE (11:56)
--- NOTE | 2023-08-12 13:04 | CA ---
Transthoracic Echo Report Name: Antoine Larry Age: 77 Gender: M : 1945 Exam Date: 08/12/2023 11:21 Exam Location: [facility] Ht (in): 71 Wt (lb): 165 Ordering Physician: Vandana Blake Attending/Referring Phys: [id number], Lou Production Helper Patience Smith RDCS Procedure CPT: Indications: CP, LV function Cardiac Hx: Technical Quality: Good Contrast 1: Total Dose (mL): Contrast 2: Total Dose (mL): MEASUREMENTS (Male / Female) Normal Values 2D ECHO LV Diastolic Diameter PLAX 4.3 cm 4.2 - 5.9 / 3.9 - 5.3 cm LV Systolic Diameter PLAX 2.4 cm IVS Diastolic Thickness 0.9 cm 0.6 - 1.0 / 0.6 - 0.9 cm LVPW Diastolic Thickness 1.0 cm 0.6 - 1.0 / 0.6 - 0.9 cm LV Relative Wall Thickness 0.4 RV Internal Dim ED PLAX 3.7 cm LVOT Diameter 2.4 cm LV Diastolic Volume MOD BP 99.7 cm??? 67 - 155 / 56 - 104 cm??? LV Systolic Volume MOD BP 34.1 cm??? 22 - 58 / 19 - 49 cm??? LV Ejection Fraction MOD BP 65.8 % >= 55 % LV Cardiac Index MOD BP 1794.7 cm???/min???m??? LV Diastolic Volume MOD 4C 90.5 cm??? LV Systolic Volume MOD 4C 34.8 cm??? LV Ejection Fraction MOD 4C 61.5 % LV Cardiac Index MOD 4C 1522.1 cm???/min???m??? LV Diastolic Length 4C 8.5 cm LV Systolic Length 4C 6.6 cm LV Diastolic Volume MOD 2C 105.9 cm??? LV Systolic Volume MOD 2C 33.1 cm??? LV Ejection Fraction MOD 2C 68.8 % LV Cardiac Index MOD 2C 1993.2 cm???/min???m??? LV Diastolic Length 2C 8.2 cm LV Systolic Length 2C 6.5 cm LA Volume 46.7 cm??? 18 - 58 / 22 - 52 cm??? LA Volume Index 24.1 cm???/m??? 16 - 28 cm???/m??? Ascending Aorta Diameter 3.6 cm DOPPLER AV Peak Velocity 91.0 cm/s AV Peak Gradient 3.3 mmHg AV Mean Velocity 63.5 cm/s AV Mean Gradient 1.8 mmHg AV Velocity Time Integral 22.4 cm LVOT Peak Velocity 81.4 cm/s LVOT Peak Gradient 2.6 mmHg LVOT Velocity Time Integral 19.3 cm LVOT Stroke Volume 85.4 cm??? LVOT Stroke Volume Index 43.9 ml/m??? LVOT Cardiac Index 2335.2 cm???/min???m??? AV Area Cont Eq vti 3.8 cm??? AV Area Cont Eq pk 3.9 cm??? MV Area PHT 4.2 cm??? Mitral E Point Velocity 64.2 cm/s Mitral A Point Velocity 58.6 cm/s Mitral E to A Ratio 1.1 MV Deceleration Time 180.3 ms TR Peak Velocity 257.1 cm/s TR Peak Gradient 26.4 mmHg Right Atrial Pressure 5.0 mmHg Pulmonary Artery Systolic Pressu 31.4 mmHg Right Ventricular Systolic Press 31.4 mmHg PV Peak Velocity 58.5 cm/s PV Peak Gradient 1.4 mmHg FINDINGS Left Ventricle Left ventricular ejection fraction is estimated at 60-65 %. Left ventricular cavity size normal. Left ventricular wall thickness normal. No obvious regional wall motion abnormalities. Right Ventricle Normal right ventricular size and function. Right ventricular systolic pressure within normal limits. Right Atrium Normal right atrial size. Left Atrium Normal left atrial size. Mitral Valve Structurally normal mitral valve. No evidence for mitral valve prolapse. No mitral stenosis. Trace mitral regurgitation. Aortic Valve Trileaflet aortic valve. No aortic stenosis. Trace aortic regurgitation. Tricuspid Valve Structurally normal tricuspid valve. No tricuspid stenosis. Mild tricuspid regurgitation. Pulmonic Valve Structurally normal pulmonic valve. No pulmonic stenosis. Trace pulmonic regurgitation. Pericardium No pericardial effusion. Aorta Normal size aortic root and proximal ascending aorta. CONCLUSIONS Left ventricular ejection fraction 60-65% Trace mitral regurgitation Mild tricuspid regurgitation No pericardial effusion Previewed by: Dr. Romero Devries DO (Electronically Signed) Final Date: 12 Aug 2023 13:03
--- NOTE | 2023-08-12 13:39 | P.GSCN ---
History of Present Illness Consult date: 08/12/23 Reason for Consult: AAA History of present illness: 77-year-old male with history of TIA, carotid stenosis with previous left carotid endarterectomy, and AAA presents to the ER for right sided chest pain. Patient states he has been having intermittent chest pains over the past few months. He states he was doing some yard work earlier in the day when he started to experience the pain. He denies any back pain, abdominal pain or issues with his lower extremities. Review of Systems All systems: negative (what is mentioned in the PMH or HPI) Past Medical History Past Medical History: GERD/Reflux, Hyperlipidemia, Musculoskeletal Disorder, Prostate Disorder, Skin Disorder, Thyroid Disorder Additional Past Medical History / Comment(s): Mild-moderate hearing loss. BPH. DDD, Spinal stenosis C5-6, C6-7. Psoriasis type rash on legs, thyroid nodules History of Any Multi-Drug Resistant Organisms: None Reported Past Surgical History: No Surgical Hx Reported Additional Past Surgical History / Comment(s): [facility] procedure, Carotid SX LT SIDE, EGD Past Anesthesia/Blood Transfusion Reactions: No Reported Reaction Past Psychological History: Depression Smoking Status: Current every day smoker Past Alcohol Use History: Occasional Additional Past Alcohol Use History / Comment(s): SMOKING <1/2 PPD=FOR 35 YEARS, cut down to 5 cigarettes per day Past Drug Use History: None Reported - Past Family History Father Family Medical History: Cancer Medications and Allergies Home Medications Medication Instructions Recorded Confirmed Type Atorvastatin Calcium [Lipitor] 20 mg PO HS 06/09/18 08/12/23 History Citalopram Hydrobromide 40 mg PO HS 06/09/18 08/12/23 History [Citalopram HBr] Omeprazole 20 mg PO DAILY 06/09/18 08/12/23 History Tamsulosin HCl [Flomax] 0.4 mg PO BID 06/09/18 08/12/23 History Allergies Allergy/AdvReac Type Severity Reaction Status Date / Time No Known Allergies Allergy Verified 08/12/23 08:00 Surgical - Exam Vital Signs Temp Pulse Resp BP Pulse Ox 98.4 F 54 L 16 151/90 99 08/11/23 22:37 08/11/23 22:37 08/11/23 22:37 08/11/23 22:37 08/11/23 22:37 - General well developed, well nourished, no distress - Eyes PERRL - ENT normal pinna, normal nares - Neck no masses, no bruits, trachea midline - Respiratory normal expansion, normal respiratory effort - Cardiovascular Rhythm: regular - Abdomen Abdomen: soft, non tender, no masses - Integumentary no rash, no growths - Neurologic normal coordination, normal sensation - Psychiatric oriented to time, oriented to person, oriented to place, speech is normal palpable DP pulses bilaterally Results CTA- Saccular aneurysm at the infrarenal aorta. No rupture. - Labs 08/11/23 22:44 08/11/23 22:44 Abnormal Lab Results - Last 24 Hours (Table) 08/11/23 08/11/23 Range/Units 22:44 22:44 RBC 4.17 L (4.30-5.90) m/uL Hgb 12.9 L (13.0-17.5) gm/dL Plt Count 100 L (150-450) k/uL Chloride 110 H (98-107) mmol/L Total Protein 6.1 L (6.3-8.2) g/dL Diabetes panel 08/11/23 Range/Units 22:44 Sodium 137 (137-145) mmol/L Potassium 3.7 (3.5-5.1) mmol/L Chloride 110 H (98-107) mmol/L Carbon Dioxide 23 (22-30) mmol/L BUN 18 (9-20) mg/dL Creatinine 0.92 (0.66-1.25) mg/dL Glucose 89 (74-99) mg/dL Calcium 8.9 (8.4-10.2) mg/dL AST 38 (17-59) U/L ALT 13 (4-49) U/L Alkaline Phosphatase 65 (38-126) U/L Total Protein 6.1 L (6.3-8.2) g/dL Albumin 3.5 (3.5-5.0) g/dL Calcium panel 08/11/23 Range/Units 22:44 Calcium 8.9 (8.4-10.2) mg/dL Albumin 3.5 (3.5-5.0) g/dL Pituitary panel 08/11/23 Range/Units 22:44 Sodium 137 (137-145) mmol/L Potassium 3.7 (3.5-5.1) mmol/L Chloride 110 H (98-107) mmol/L Carbon Dioxide 23 (22-30) mmol/L BUN 18 (9-20) mg/dL Creatinine 0.92 (0.66-1.25) mg/dL Glucose 89 (74-99) mg/dL Calcium 8.9 (8.4-10.2) mg/dL Adrenal panel 08/11/23 Range/Units 22:44 Sodium 137 (137-145) mmol/L Potassium 3.7 (3.5-5.1) mmol/L Chloride 110 H (98-107) mmol/L Carbon Dioxide 23 (22-30) mmol/L BUN 18 (9-20) mg/dL Creatinine 0.92 (0.66-1.25) mg/dL Glucose 89 (74-99) mg/dL Calcium 8.9 (8.4-10.2) mg/dL Total Bilirubin 0.3 (0.2-1.3) mg/dL AST 38 (17-59) U/L ALT 13 (4-49) U/L Alkaline Phosphatase 65 (38-126) U/L Total Protein 6.1 L (6.3-8.2) g/dL Albumin 3.5 (3.5-5.0) g/dL Assessment and Plan Assessment: Saccular aortic aneurysm and bilateral common iliac aneurysm Chest pain Asymptomatic bradycardia Hyperlipidemia Nicotine dependence History of alcohol abuse per documentation, patient denies History of carotid stenosis with previous surgical intervention History of TIA x 2 Anxiety History of BPH Plan: Reviewed CTA with him and his family in full detail. No emergent surgical intervention at this time. Will need EVAR once he is cleared due to the saccular nature of the aneurysm. Ok to have EVAR done as outpatient. Thank you for the consultation. Will follow with you.
--- NOTE | 2023-08-12 13:42 | P.DS ---
Providers Date of admission: 08/12/23 02:30 Expected date of discharge: 08/12/23 Attending physician: Jr Borja MD Consults: 08/12/23 02:30 Consult Physician Routine Consulting Provider: [facility] Consult Reason/Comments: chest pain, bradycardia Do you want consulting provider notified?: Yes, Notify in am 08/12/23 06:42 Consult Physician Routine Consulting Provider: Tyra Parra Consult Reason/Comments: sacular aortic aneurysm Do you want consulting provider notified?: Yes Primary care physician: Deven Rivas [facility] Hospital Course: Discharge Diagnosis: Right-sided chest pain, acute coronary event ruled out Newly diagnosed saccular aortic aneurysms and bilateral common iliac aneurysm. Patient was evaluated by vascular surgery and stated no emergent surgical intervention required at this time but patient will need EVAR once he is cleared due to the saccular nature of the aneurysm and can have done outpatient recommending patient follow-up in 1 week. Tension Hyperlipidemia GERD BPH Hypothyroidism Nicotine dependence. Commend smoking cessation. Hospital Course: Patient is a 77-year-old male with a past medical history of hypertension, hyperlipidemia, GERD, BPH, hypothyroidism, and nicotine dependence. He presented to the emergency department with a chief complaint of right-sided chest pain. He reports initially having a right lower quadrant pain extending into the right anterior chest and into his right shoulder described as sharp in nature that has been waxing and waning over the past couple days. On arrival to the hospital, patient underwent evaluation in the emergency department. Vital signs upon arrival show blood pressure 151/90, heart rate 54, respiratory rate 16, temp 98.4 F, and SpO2 of 99% on room air. EKG was completed showing sinus bradycardia at 53 bpm with no noted T wave or ST abnormalities showing no signs of acute ischemia upon personal review and interpretation. Most x-ray negative for acute cardiopulmonary process labs were completed and reviewed. CBC showing. Bicytopenia with hemoglobin of 12.9 and platelet count of 100. Coagulation profile normal findings. BMP unremarkable with exception of elevated chloride of 110. Liver profile unremarkable. Lipase normal findings at 110. Troponin was negative at less than 0.012 with proBNP of 103.CT abdomen and pelvis with IV contrast completed showing thickened stomach concerning for possible gastritis versus under distention and a 2 to 3.1 cm and 3.4 cm saccular aortic aneurysms and bilateral common iliac aneurysm, colonic diverticulosis without acute diverticulitis, and mildly thickened bladder. Patient was admitted under our services with consultation to cardiology and cardiothoracic surgery. He had full resolution of right-sided chest pain. Troponins were trended overnight and all negative at less than 0.012 x 3 draws. Echocardiogram was completed showing a preserved EF of 60 to 65% with trace mitral regurgitation. Patient evaluated by cardiology and clearing patient from cardiac perspective for discharge. Patient was evaluated by vascular surgery and stated no emergent surgical intervention required at this time but patient will need EVAR once he is cleared due to the saccular nature of the aneurysm and can have done outpatient recommending patient follow-up in 1 week. Medically, patient is stable for discharge at this time, patient instructed he will need to follow-up outpatient with PCP in 1 to 2 days, vascular surgery in 1 week, and cardiology in 1 week. Patient instructed if pain returns to return to the emergency department immediately and also discussed possibility of outpatient follow-up with standard machine stitcher for EGD. Physical exam: Patient seen and examined at bedside. Vital signs reviewed and stable. General: Nontoxic, no distress and appears stated age. Derm: Skin warm and dry, normal coloration for ethnicity. Head: Atraumatic, normocephalic and symmetric. Eyes: EOMs intact, no lid lag, and anicteric sclera Mouth: no lip lesions, mucus membranes moist Cardiovascular: regular rate and rhythm with normal S1S2, no murmur, positive posterior tibial pulses bilaterally, and cap refill < 2 seconds. Lungs: Respirations even, regular, and unlabored on room air. Lungs CTA bilaterally, no rhonchi, no rales, no wheezing, and no accessory muscle usage. Abdominal: soft, nontender to palpation, no guarding, no appreciable organomegaly Ext: ROM intact. No gross muscle atrophy, no edema, no contractures Neuro: Speech clear, face symmetrical and CN II-XII grossly intact with no noted focal neuro deficits Psych: Alert and oriented to person, place, time, and situation. Appropriate and pleasant affect. A total of 38 minutes of time were spent preparing this complex discharge summary. Pt was discharged on 08/12/2023 at 1:30 PM. Patient was seen independently by Nurse Practitioner. This document was prepared using [employer] dictation software. Please allow for errors in private duty aide while rare they do occur. Joni Morillo NP rendered care for this patient independently, reviewed the findings and plan as documented in the note above. I did not physically speak with or examine the patient on this date. Patient Condition at Discharge: Stable Plan - Discharge Summary New Discharge Prescriptions: Continue Omeprazole 20 mg PO DAILY Citalopram Hydrobromide [Citalopram HBr] 40 mg PO HS Atorvastatin Calcium [Lipitor] 20 mg PO HS Tamsulosin HCl [Flomax] 0.4 mg PO BID Discharge Medication List Atorvastatin Calcium [Lipitor] 20 mg PO HS 06/09/18 [History] Citalopram Hydrobromide [Citalopram HBr] 40 mg PO HS 06/09/18 [History] Omeprazole 20 mg PO DAILY 06/09/18 [History] Tamsulosin HCl [Flomax] 0.4 mg PO BID 06/09/18 [History] Follow up Appointment(s)/Referral(s): Romero Devries DO [STAFF PHYSICIAN] - 1 Week Amadou Hammond DO [STAFF PHYSICIAN] - 1 Week Deven Rivas DO [Primary Care Provider] - 1-2 days Activity/Diet/Wound Care/Special Instructions: Activity: As tolerated. Take breaks as needed. Diet: Heart healthy and carb consistent diet. Avoid salts, or foods with hidden salts such as canned or boxed foods and frozen dinners. Extra salt makes your heart work harder and traps the fluid in your body for longer. Special Instructions: Take all of your medications as directed and remember to keep all of your doctor's appointments and follow-up as needed. Thank you for allowing us to participate in your care, it was truly a pleasure having you for our patient!!! Discharge Disposition: HOME SELF-CARE
[2023-08-12 14:58] VITALS: BP 127/80; PULSE 54; TEMP 98
[2023-08-12] MEDS ORDERED: ATORVASTATIN 20 MG TAB PO SCH (21:00)
== END 2023-08-12 14:07 | disposition home or self-care (01) ==
LOC: EC 22:35 → 6NMEDSUR 08-12 02:30
PROVIDERS: ADMIT Internal Medicine; ATTEND Internal Medicine
DX: R07.89 Other chest pain (principal); M25.511 Pain in right shoulder; I71.40 Abdominal aortic aneurysm, without rupture, unspecified; I72.3 Aneurysm of iliac artery; K57.90 Diverticulosis of intestine, part unspecified, without perforation or abscess without bleeding; R00.1 Bradycardia, unspecified; I10 Essential (primary) hypertension; J44.9 Chronic obstructive pulmonary disease, unspecified; I34.0 Nonrheumatic mitral (valve) insufficiency; K21.9 Gastro-esophageal reflux disease without esophagitis; N40.0 Benign prostatic hyperplasia without lower urinary tract symptoms; D69.6 Thrombocytopenia, unspecified; E78.5 Hyperlipidemia, unspecified; E03.9 Hypothyroidism, unspecified; F41.9 Anxiety disorder, unspecified; F10.10 Alcohol abuse, uncomplicated; F17.210 Nicotine dependence, cigarettes, uncomplicated; Z79.82 Long term (current) use of aspirin; Z79.899 Other long term (current) drug therapy; Z86.73 Personal history of transient ischemic attack (TIA), and cerebral infarction without residual deficits; Z86.79 Personal history of other diseases of the circulatory system
CPT/HCPCS: 96361; 96372; 96374; 99285; 36415; 93005; 93306; 83880; 80053; 83690; 83735; 84484 ×2; 85025; 85610; 85730; 71046; 74177; G0378; J1644; C9113; Q9967

== ENCOUNTER → 2023-08-24 | Outpatient (CLI) | payer MEDICARE ==
[2023-08-24 18:31] LABS: Basophils # (A) 0.04 X 10*3/uL (0.00-0.10); Basophils % (A) 0.8 %; Eosinophils # (A) 0.23 X 10*3/uL (0.04-0.35); Eosinophils % (A) 4.6 %; HCT 41.7 % (39.6-50.0); HGB 13.8 g/dL (13.0-17.0); Lymphocytes # (A) 1.25 X 10*3/uL (0.90-5.00); Lymphocytes % (A) 25.1 %; MCHC 33.1 g/dL (32.0-37.0); MCV 93.7 FL (80.0-97.0); Mean Platelet Volume 11.3 FL (9.5-12.2); Monocytes # (A) 0.42 X 10*3/uL (0.20-1.00); Monocytes % (A) 8.4 %; NRBC Per 100 WBC 0 X 10*3/uL (0.00-0.01); Neutrophils # (A) 3.04 X 10*3/uL (1.80-7.70); Neutrophils % (A) 60.9 %; Platelet Count 141 X 10*3/uL (140-440); RBC 4.45 X 10*6/uL (4.40-5.60); RDW 13.7 % (11.5-14.5); WBC 4.99 X 10*3/uL (4.50-10.00)
[2023-08-24 19:44] LABS: BUN/Creat Ratio 14.78 Ratio (12.00-20.00); Blood Urea Nitrogen 13.3 mg/dL (9.0-27.0); Calcium 9.3 mg/dL (8.7-10.3); Carbon Dioxide 23.8 mmol/L (21.6-31.8); Chloride 105 mmol/L (96-109); Glucose 78 mg/dL (70-110); Potassium 4.6 mmol/L (3.5-5.5); Sodium 138 mmol/L (135-145)
== END | disposition home or self-care (01) ==
LOC: LABWHC1 14:48
PROVIDERS: ATTEND Internal Medicine
DX: I71.40 Abdominal aortic aneurysm, without rupture, unspecified (principal)
CPT/HCPCS: 36415; 80048; 85025

== ENCOUNTER 2023-09-14 10:15 | Inpatient (IN) | payer MEDICARE ==
[2023-10-13 08:58] VITALS: BMI 21.9
[2023-10-14] MEDS ORDERED: ZOLPIDEM 5 MG TAB PO PRN (07:04)
[2023-10-14] MEDS ORDERED: ceFAZolin 1 GM in SODIUM CHLORIDE 0.9% 250 ML IRRIGATION PRN (07:04)
[2023-10-14] MEDS ORDERED: ALPRAZolam 0.25 MG TAB PO PRN (07:04)
[2023-10-14] MEDS: SODIUM CHLORIDE 0.9% 1,000 ML in EMPTY BAG 1 BAG IV ONE (08:48)
[2023-10-14] MEDS: IV FLUID CONTINUATION 1,000 ML IV ONE (08:49)
[2023-10-14 09:10] LABS: Glucose,Whole Blood 94 mg/dL (70-110)
[2023-10-14 09:22] LABS: Basophils % (A) 1 %; Eosinophils # (A) 0.2 k/uL (0-0.7); Eosinophils % (A) 5 %; HCT 44.1 % (39.0-53.0); HGB 14.6 gm/dL (13.0-17.5); Lymphocytes # (A) 1.1 k/uL (1.0-4.8); Lymphocytes % (A) 25 %; MCH 31.8 pg (25.0-35.0); MCHC 33.2 g/dL (31.0-37.0); MCV 95.8 fL (80.0-100.0); Mean Platelet Volume 8.9; Monocytes # (A) 0.3 k/uL (0-1.0); Monocytes % (A) 6 %; Neutrophils # (A) 2.7 k/uL (1.3-7.7); Neutrophils % (A) 62 %; Platelet Count 128 k/uL (150-450); RDW 13.3 % (11.5-15.5); WBC 4.3 k/uL (3.8-10.6)
[2023-10-14] MEDS: MIDAZOLAM 2 MG/2 ML VIAL IV ONE (09:36)
[2023-10-14 09:49] LABS: African American GFR (CKD) >90 (>60 ml/min/1.73 sqM); Anion Gap 2 mmol/L; Blood Urea Nitrogen 13 mg/dL (9-20); Calcium 9.5 mg/dL (8.4-10.2); Carbon Dioxide 29 mmol/L (22-30); Chloride 108 mmol/L (98-107); Glucose 90 mg/dL (74-99); Non-African American GFR(CKD) 84 (>60 ml/min/1.73 sqM); Potassium 4.4 mmol/L (3.5-5.1); Sodium 139 mmol/L (137-145)
--- NOTE | 2023-10-14 09:55 | P.ANPRN ---
Procedure Note - Anesthesia - Invasive Line Right Arterial Line Time Out Performed: Yes Date of Procedure: 10/14/23 Time of Procedure: 09:38 Location of Patient: [facility] Preparation: Sterile Prep, Sterile Dressing Arterial Line Location: Briachial Ultrasound Used: No Purpose - Visualization and Identification of Vasculature: No Image Stored and Saved: No Narrative: Invasive line placement per sterile protocol utilized.
[2023-10-14] MEDS ORDERED: LIDOCAINE 1% INJ 10MG/ML (20 ML MDV) ONE ×2 (10:21→10:40)
[2023-10-14] MEDS ORDERED: SUCCINYLCHOLINE CHLORIDE 200 MG/10 ML VIAL IV ONE (10:40)
[2023-10-14] MEDS ORDERED: PROPOFOL 10 MG/ML 20 ML VIAL IV ONE (10:40)
[2023-10-14] MEDS ORDERED: GLYCOPYRROLATE 0.2 MG/ML 2 ML VIAL ONE (10:40)
[2023-10-14] MEDS ORDERED: NEOSTIGMINE 1 MG/ML 10 ML VIAL ONE (10:40)
[2023-10-14] MEDS ORDERED: fentaNYL (PF) 50 MCG/ML 2 ML AMP ONE (10:40)
[2023-10-14] MEDS ORDERED: PHENYLEPHRINE 10 MG/ML VIAL ONE (10:40)
[2023-10-14] MEDS ORDERED: ROCURONIUM 10 MG/ML (5 ML VIAL) IV ONE (10:40)
[2023-10-14] MEDS ORDERED: HEPARIN SODIUM,PORCINE 10,000 UNIT/ML 1 ML VIAL ONE (10:40)
[2023-10-14] MEDS ORDERED: MIDAZOLAM 2 MG/2 ML VIAL ONE (10:40)
[2023-10-14] MEDS ORDERED: PROTAMINE SULFATE 10 MG/ML 5 ML VIAL ONE (10:40)
[2023-10-14] MEDS ORDERED: hydrALAZINE HCL 20 MG/ML 1 ML VIAL ONE (10:40)
[2023-10-14] MEDS ORDERED: NALOXONE 0.4 MG/ML 1 ML VIAL IVP PRN (12:14)
--- NOTE | 2023-10-14 12:14 | P.OP ---
Description of Procedure: Date: 10/14/2023 Preoperative diagnosis: Asymptomatic saccular 3.5 cm infrarenal abdominal aortic aneurysm Postoperative diagnosis: Same Procedure: Percutaneous Endovascular aortic repair with AFX II device under ultrasound guided access Surgeon: Amadou Hammond DO Census Enumerator: none Anesthesia: GETA EBL: 20 cc Contrast: 100 cc Fluoroscopy time: 18 minutes Complications: None Condition: Stable Disposition: Palpable DP pulses bilaterally Indication for procedure: 77-year-old gentleman with 3.5 cm saccular aneurysm noted on previous CT scan and abdominal ultrasound presents to the hospital for elective endovascular repair. Due to the fact that it was saccular in nature the recommendation was for repair which she is agreeable and presents for procedure. Operative Narrative: After written and informed consent was obtained the patient all risks benefits and complications were described the patient is brought to the [facility] and laid in the supine position. The area of the groins were prepped and draped in usual sterile fashion after appropriate anesthetic was performed per the anesthesiologist. A timeout was performed in normal fashion antibiotics were administered prior to accessed. Under ultrasound guidance bilateral common femoral arteries were accessed and utilizing Seldinger technique a 7-Italian sheath was placed in the right femoral artery and 2 Perclose closure devices were placed in the left femoral artery followed by an 8-Italian sheath. 035 Glidewire was then placed through the 8-Italian sheath and replaced with a stiff Lunderquist wire through a comfy catheter. 035 guidewire was then placed in the 7-Italian sheath followed by pigtail catheter above the renal arteries at approximately L1-L2 vertebra level. Guidewire was removed and aortogram was obtained. The patient was then administered heparin and followed with serial ACTs for appropriate heparinization. The 8-Italian sheath was then removed and 19-Italian AFX introducer sheath was guided over the stiff wire to the area above the bifurcation. A 25 x 110 mm AFX2 bifurcated device was then guided onto the stiff wire. The contralateral wire was then placed and through the 7-Italian sheath it was then snared and brought out to the contralateral 7- Italian sheath. The main body of the AFX was then advanced to above the bifurcation in normal fashion and deployed above the bifurcation ultimately then pulled down to the bifurcation. Once main body was deployed attention was then placed to the contralateral limb which was deployed by removing the yellow loop cover. A pigtail catheter was then placed over the wire and the contralateral wire was unlocked with the pigtail catheter. Pigtail catheter was then placed above the renal arteries. The ipsilateral limb was then obtained and the inner core and retracting AFX introducer sheath to deployed the ipsilateral limb. This inner deployment was removed and the obturator was placed and the sheath was then advanced through the above the renal arteries. A 28 x 95 mm suprarenal AFX Rodrigues cuff was then deployed beneath the renal arteries once landing zone was visualized. Once completed the deployment sheath was removed and a Q50 balloon was placed through the AFX introducer sheath and the overlap was ballooned. The pigtail catheter was then withdrawn and placed within the Rodrigues cuff in usual fashion. Final angiogram was obtained demonstrating good seal with no evidence of endoleak. All guidewires and catheters were then removed and the Perclose closure device was utilized for hemostasis for the ipsilateral femoral artery. A Vascade was then placed through the 7-Italian sheath for hemostasis in normal fashion. Once hemostatic the areas were then cleansed and dressings were placed. The patient tolerated the procedure well and had palpable DP pulses at the conclusion of the procedure. He was then sent to PACU for recovery.
--- NOTE | 2023-10-14 12:27 | IR ---
EXAMINATION TYPE: IR endorepair iliac ilio tube DATE OF EXAM: 10/14/2023 COMPARISON: NONE HISTORY: Fluoroscopy time. Fluoroscopy was provided to the referring clinician.
[2023-10-14] MEDS: HYDROmorphone 0.5 MG/0.5 ML SYRINGE IVP STA (13:35)
--- NOTE | 2023-10-14 16:24 | P.CONS ---
History of Present Illness - Reason for Consult Consult date: 10/14/23 Medical Management Requesting physician: Amadou Hammond - History of Present Illness History of Presenting Illness: Patient is a very pleasant 77-year-old male with a past medical history of TIA, hypertension, hyperlipidemia, BPH, nicotine dependence, and abdominal aortic aneurysm. He is currently admitted under vascular surgery team and is status post an endovascular aortic repair of his AAA. Surgical procedure was completed by Dr. Hammond. We were consulted for medical management throughout hospitalization. Patient was seen and fully evaluated in room 360 status post completion of endovascular aortic repair of his AAA. Patient currently reports mild to moderate abdominal pain, nausea, and an overall feeling of uncomfortableness. He denies having any chest pain, palpitations, shortness of breath, or experiencing any numbness/tingling/weakness in his extremities. Patient was medicated with antiemetic by RN and orders being placed for pain medication at this time. Review of systems: Pertinent positives and negatives as discussed in HPI, a complete review of systems was performed and all other systems are negative. Physical exam: Vital signs reviewed and stable. General: Nontoxic, no distress and appears stated age. Derm: Skin warm and dry, normal coloration for ethnicity. Head: Atraumatic, normocephalic and symmetric. Eyes: EOMs intact, no lid lag, and anicteric sclera Mouth: no lip lesions, mucus membranes moist Cardiovascular: regular rate and rhythm with normal S1S2, no murmur, positive posterior tibial pulses bilaterally, and cap refill < 2 seconds. Lungs: Respirations even, regular, and unlabored on room air. Lungs CTA bilater ally, no rhonchi, no rales, no wheezing, and no accessory muscle usage. Abdominal: soft, nontender to palpation, no guarding, no appreciable organomegaly. Parra catheter in place. Pressure dressing to right groin, no signs of bleeding or hematoma formation Ext: ROM intact. No gross muscle atrophy, no edema, no contractures Neuro: Speech clear, face symmetrical and CN II-XII grossly intact with no noted focal neuro deficits Psych: Alert and oriented to person, place, time, and situation. Appropriate and pleasant affect. Assessment and Plan of Care: Status post endovascular abdominal aortic aneurysm repair Saccular 3.5 cm infrarenal abdominal aortic aneurysm -Management per primary admitting vascular surgery team including DVT prophylaxis, wound/dressing changes, timing of post vascular procedure assessments and wound/dressing management. -Orders placed for pain management with Tylenol 650 mg p.o. every 6 hours as needed for mild pain, [place] 5-325 mg tablets every 4 hours as needed for moderate pain, and morphine 4 mg IVP every 6 hours as needed for severe pain. -Zofran 4 mg IVP every 6 hours as needed for nausea/vomiting. -Patient to remain on continuous telemetry monitoring with close monitoring of vital signs -Order placed for morning labs including CBC, CMP, and magnesium. -Strict monitoring of I's and O's. History of TIA Hypertension Hyperlipidemia Continue daily medication regimen with aspirin 81 mg daily and atorvastatin 20 mg nightly. BPH Continue daily medication regimen with Flomax 0.4 mg twice daily. Nicotine dependence Order placed for 14 mg nicotine patch every 24 hours and recommend smoking cessation. Data and imaging reviewed: Reviewed operative report Preoperative labs completed this morning and reviewed. CBC showing thrombocytopenia with platelet count of 128 otherwise normal findings. BMP showing mild hyperchloremia with chloride of 108. Blood glucose was 94. Vital signs reviewed. Blood pressure 123/70, heart rate 58, respiratory rate 18, temp 97.2 F, and SpO2 of 99% on room air. Thank you for allowing us to participate in the care of this pleasant patient. Do not hesitate to contact us with questions. Someone can be reached from the [facility] hospitalist group all hours of the day at [phone] or via Super[employer]. Patient was seen independently by Nurse Practitioner. This document was prepared using Plasmon dictation software. Please allow for errors in esl tutor while rare they do occur. I reviewed the documentation as provided by the GAURI above, who is the original author of this note. I agree with the documented assessment and plan, with the following changes: none Past Medical History Past Medical History: CVA/TIA, GERD/Reflux, Hearing Disorder / Deafness, Hyperlipidemia, Musculoskeletal Disorder, Osteoarthritis (OA), Prostate Disorder, Skin Disorder, Thyroid Disorder Additional Past Medical History / Comment(s): Mild-moderate hearing loss. BPH. DDD, Spinal stenosis C5-6, C6-7. Psoriasis type rash on legs, thyroid nodules aneurysm. TIA- 2020 no residual affects. "Chest pain 1 month ago but wasn't heart related." per . "Years ago he had a stomach ulcer that burst and they did surgery." per History of Any Multi-Drug Resistant Organisms: None Reported Past Surgical History: No Surgical Hx Reported Additional Past Surgical History / Comment(s): [facility] procedure, Carotid SX LT SIDE, EGD, Duodenal ulcer repair years ago. Past Anesthesia/Blood Transfusion Reactions: No Reported Reaction Smoking Status: Current every day smoker - Past Family History Father Family Medical History: Cancer Medications and Allergies Home Medications Medication Instructions Recorded Confirmed Type Atorvastatin Calcium [Lipitor] 20 mg PO HS 06/09/18 10/14/23 History Citalopram Hydrobromide 40 mg PO HS 06/09/18 10/14/23 History [Citalopram HBr] Omeprazole 20 mg PO QAM 06/09/18 10/14/23 History Tamsulosin HCl [Flomax] 0.4 mg PO BID 06/09/18 10/14/23 History Aspirin EC [Ecotrin Low Dose] 81 mg PO QAM 10/13/23 10/13/23 History Naproxen Sodium [Aleve] 220 mg PO BID PRN 10/13/23 10/13/23 History Allergies Allergy/AdvReac Type Severity Reaction Status Date / Time No Known Allergies Allergy Verified 10/13/23 08:38 Physical Exam Vitals: Vital Signs Temp Pulse Pulse Resp BP BP BP 10/14/23 14:30 58 L 18 123/70 10/14/23 14:05 57 L 16 137/68 10/14/23 13:50 67 16 127/62 10/14/23 13:35 61 16 138/66 10/14/23 13:22 62 18 131/81 144/69 10/14/23 13:07 69 18 139/75 141/66 10/14/23 12:52 66 18 149/65 149/70 10/14/23 12:37 97.2 F L 73 18 197/97 10/14/23 09:01 97.6 F 45 L 16 165/81 178/89 Pulse Ox 10/14/23 14:30 99 10/14/23 14:05 100 10/14/23 13:50 100 10/14/23 13:35 92 L 10/14/23 13:22 98 10/14/23 13:07 100 10/14/23 12:52 97 10/14/23 12:37 96 10/14/23 09:01 99 Intake and Output 10/14/23 10/14/23 10/14/23 06:59 14:59 22:59 Intake Total 300 Output Total 700 Balance -400 Intake: IV 300 Output: Urine 700 Other: Weight 68.2 kg Results CBC & Chem 7: 10/15/23 05:51 10/15/23 05:51 Labs: Abnormal Lab Results - Last 24 Hours (Table) 10/14/23 10/14/23 Range/Units 08:50 08:50 Plt Count 128 L (150-450) k/uL Chloride 108 H (98-107) mmol/L
[2023-10-14] MEDS: ONDANSETRON 4 MG/2 ML VIAL IVP PRN (16:37)
[2023-10-14] MEDS: NICOTINE 14MG/24HR PATCH TRANSDERM SCH (17:20)
[2023-10-14] MEDS: MORPHINE SULFATE 4 MG/ML SYRINGE IV PRN (17:20)
[2023-10-14] MEDS: SODIUM CHLORIDE 0.9% 1,000 ML in EMPTY BAG 1 BAG IV SCH (20:11)
[2023-10-14] MEDS: ACETAMINOPHEN TAB 325 MG TAB PO PRN (20:15)
[2023-10-14] MEDS: TAMSULOSIN 0.4 MG CAP.ER.24H PO SCH (20:16)
[2023-10-14] MEDS: ATORVASTATIN 20 MG TAB PO SCH (20:16)
[2023-10-14] MEDS: CITALOPRAM HYDROBROMIDE 20 MG TAB PO SCH (20:16)
[2023-10-14 22:01] VITALS: TEMP 98.6
[2023-10-14] MEDS: HYDROcodone/APAP 5-325MG 1 EACH TAB PO PRN (23:21)
[2023-10-15 06:05] LABS: HCT 37.4 % (39.0-53.0); HGB 12.5 gm/dL (13.0-17.5); MCH 31.7 pg (25.0-35.0); MCHC 33.4 g/dL (31.0-37.0); MCV 94.9 fL (80.0-100.0); Platelet Count 106 k/uL (150-450); RBC 3.94 m/uL (4.30-5.90); RDW 13.4 % (11.5-15.5); WBC 7.1 k/uL (3.8-10.6)
[2023-10-15 06:22] LABS: ALT 11 U/L (4-49); AST 32 U/L (17-59); African American GFR (CKD) >90 (>60 ml/min/1.73 sqM); Albumin 3.3 g/dL (3.5-5.0); Alkaline Phosphatase 55 U/L (38-126); Anion Gap 2 mmol/L; Blood Urea Nitrogen 11 mg/dL (9-20); Calcium 8.8 mg/dL (8.4-10.2); Carbon Dioxide 24 mmol/L (22-30); Chloride 108 mmol/L (98-107); Glucose 117 mg/dL (74-99); Magnesium 1.8 mg/dL (1.6-2.3); Non-African American GFR(CKD) 87 (>60 ml/min/1.73 sqM); Potassium 3.8 mmol/L (3.5-5.1); Sodium 134 mmol/L (137-145); Total Bilirubin 0.8 mg/dL (0.2-1.3); Total Protein 5.6 g/dL (6.3-8.2)
[2023-10-15] MEDS: PANTOPRAZOLE 40 MG TABLET PO SCH (08:00)
[2023-10-15] MEDS: ASPIRIN 81 MG PO SCH (08:00)
--- NOTE | 2023-10-15 11:54 | P.PN ---
Subjective Progress Note Date: 10/15/23 Status post stent graft repair of abdominal aortic aneurysm. Objective - Vital Signs Vital signs: Vital Signs Temp 98.6 F 10/15/23 07:49 Pulse 67 10/15/23 07:49 Resp 18 10/15/23 07:49 BP 113/61 10/15/23 07:49 Pulse Ox 96 10/15/23 07:49 FiO2 Intake & Output 10/14/23 10/15/23 10/15/23 18:59 06:59 18:59 Intake Total 420 140 Output Total 740 100 Balance -320 40 Weight 68.2 kg 67.9 kg Intake: IV 300 20 Invasive Line 2 10 Invasive Line 3 10 Oral 120 120 Output: Gastric Drainage 0 Urine 740 100 Stool 0 Urine/Stool Mix 0 Emesis 0 Oral Regurgitation 0 Other 0 Other: Voiding Method External Catheter Toilet # Voids 0 - Exam Patient is awake alert, cooperative in no apparent distress. Indicates she is eating well and having no issues voiding. He has been ambulatory. He is having minimal if any discomfort. Surgical wounds are unremarkable. Legs are free of edema. Palpable femoral pulses are noted bilaterally. - Labs CBC & Chem 7: 10/15/23 05:51 10/15/23 05:51 Labs: Abnormal Lab Results - Last 24 Hours (Table) 10/15/23 10/15/23 Range/Units 05:51 05:51 RBC 3.94 L (4.30-5.90) m/uL Hgb 12.5 L (13.0-17.5) gm/dL Hct 37.4 L (39.0-53.0) % Plt Count 106 L (150-450) k/uL Sodium 134 L (137-145) mmol/L Chloride 108 H (98-107) mmol/L Glucose 117 H (74-99) mg/dL Total Protein 5.6 L (6.3-8.2) g/dL Albumin 3.3 L (3.5-5.0) g/dL Assessment and Plan Assessment: Status post endograft repair abdominal aortic aneurysm. Plan: Instructions were reviewed with the patient. 1: Ambulate ad jose. 2: May shower over wounds. 3: Please follow-up with Dr. Hammond as previously scheduled. 4: Continue current medications.
--- NOTE | 2023-10-15 12:01 | P.DS ---
Providers Date of admission: 10/14/23 08:11 Attending physician: Amadou Hammond DO Consults: 10/14/23 07:04 Consult to Anesthesia Routine Consulting Provider: Anesthesia,Services Consult Reason/Comments: General anesthesia for Aortic Stent procedure 10/14/23 12:17 Consult Physician Routine Consulting Provider: Jr Borja Consult Reason/Comments: medical management Do you want consulting provider notified?: Yes Primary care physician: Deven [facility] Course: Patient underwent stent graft repair of abdominal aortic aneurysm without issue. Procedures: Stent graft repair abdominal aortic aneurysm. Patient Condition at Discharge: Good Plan - Discharge Summary Discharge Rx Participant: No New Discharge Prescriptions: Continue Omeprazole 20 mg PO QAM Citalopram Hydrobromide [Citalopram HBr] 40 mg PO HS Atorvastatin Calcium [Lipitor] 20 mg PO HS Tamsulosin HCl [Flomax] 0.4 mg PO BID Naproxen Sodium [Aleve] 220 mg PO BID PRN PRN Reason: Pain Aspirin EC [Ecotrin Low Dose] 81 mg PO QAM Discharge Medication List Atorvastatin Calcium [Lipitor] 20 mg PO HS 06/09/18 [History] Citalopram Hydrobromide [Citalopram HBr] 40 mg PO HS 06/09/18 [History] Omeprazole 20 mg PO QAM 06/09/18 [History] Tamsulosin HCl [Flomax] 0.4 mg PO BID 06/09/18 [History] Aspirin EC [Ecotrin Low Dose] 81 mg PO QAM 10/13/23 [History] Naproxen Sodium [Aleve] 220 mg PO BID PRN 10/13/23 [History] Follow up Appointment(s)/Referral(s): Amadou Hammond DO [STAFF PHYSICIAN] - 2 Weeks Patient Instructions/Handouts: Endovascular Aneurysm Repair of Abdominal Aorta (DC) Activity/Diet/Wound Care/Special Instructions: No driving for two days. Avoid heavy lifting greater than 10 lbs , pushing, pulling, straining, flights of stairs for three days. ok to shower tomorrow but no baths, pools, soaking in tubs for three days to avoid risk of infection. signs of infection ie: fever, rash, drainage from puncture site, swelling contact doctor or return to ER immediately. Heavy bleeding from puncture site apply firm direct pressure and return to ER. Do not attempt to drive self. low sodium/low fat diet Discharge Disposition: HOME SELF-CARE
[2023-10-15 12:43] VITALS: BP 144/78; PULSE 64; RESP 16
--- NOTE | 2023-10-15 13:05 | P.PN ---
Subjective Progress Note Date: 10/15/23 Principal diagnosis: I reviewed the documentation as provided by the GAURI above, who is the original author of this note. I agree with the documented assessment and plan, with the following changes: none Hospital Course: Patient is a very pleasant 77-year-old male with a past medical history of TIA, hypertension, hyperlipidemia, BPH, nicotine dependence, and abdominal aortic aneurysm. He is currently admitted under vascular surgery team and is status post an endovascular aortic repair of his AAA. Surgical procedure was completed by Dr. Hammond. We were consulted for medical management throughout hospitalization. Physical exam: Seen and fully evaluated at bedside this morning. Parra catheter was removed and patient urinating without any difficulties. Vital signs reviewed and stable. General: Nontoxic, no distress and appears stated age. Derm: Skin warm and dry, normal coloration for ethnicity. Head: Atraumatic, normocephalic and symmetric. Eyes: EOMs intact, no lid lag, and anicteric sclera Mouth: no lip lesions, mucus membranes moist Cardiovascular: regular rate and rhythm with normal S1S2, no murmur, positive posterior tibial pulses bilaterally, and cap refill < 2 seconds. Lungs: Respirations even, regular, and unlabored on room air. Lungs CTA bilaterally, no rhonchi, no rales, no wheezing, and no accessory muscle usage. Abdominal: soft, nontender to palpation, no guarding, no appreciable orga nomegaly Pressure dressing to right groin, no signs of bleeding or hematoma formation Ext: ROM intact. No gross muscle atrophy, no edema, no contractures Neuro: Speech clear, face symmetrical and CN II-XII grossly intact with no noted focal neuro deficits Psych: Alert and oriented to person, place, time, and situation. Appropriate and pleasant affect. Assessment and Plan of Care: Status post endovascular abdominal aortic aneurysm repair Saccular 3.5 cm infrarenal abdominal aortic aneurysm -Management per primary admitting vascular surgery team including DVT prophylaxis, wound/dressing changes, advancement of activity, timing of post vascular procedure assessments and wound/dressing management. -Patient to remain on continuous telemetry monitoring with close monitoring of vital signs -Order placed for morning labs including CBC, CMP, and magnesium. -Strict monitoring of I's and O's. Postoperative nausea -Zofran 4 mg IVP every 6 hours as needed for nausea/vomiting. Postoperative Pain -Orders placed for pain management with Tylenol 650 mg p.o. every 6 hours as needed for mild pain, [place] 5-325 mg tablets every 4 hours as needed for moderate pain, and morphine 4 mg IVP every 6 hours as needed for severe pain. History of TIA Hypertension Hyperlipidemia Continue daily medication regimen with aspirin 81 mg daily and atorvastatin 20 mg nightly. BPH Continue daily medication regimen with Flomax 0.4 mg twice daily. Nicotine dependence Order placed for 14 mg nicotine patch every 24 hours and recommend smoking cessation. Data and imaging reviewed: Postoperative labs reviewed. CBC showing acute postoperative blood loss anemia with hemoglobin of 12.5 and preoperative hemoglobin of 14.6. CBC also revealing thrombocytosis with platelet count of 106. BMP revealing mild hypochloremic hyponatremia with sodium of 134 and chloride of 108 otherwise normal findings. Blood glucose was 117. Magnesium 1.8. Liver profile unremarkable with exception of mild hypoalbuminemia with albumin of 3.3. Vital signs reviewed. Blood pressure 113/61, heart rate 67, respiratory rate 18, temp 98.6 F, and SpO2 of 96% on room air. Patient reports feeling great and denies having any pain or complaints at this time. Patient is medically optimized for discharge once cleared by primary admitting vascular surgery team. Thank you for allowing us to participate in the care of this pleasant patient. Do not hesitate to contact us with questions. Someone can be reached from the [facility] hospitalist group all hours of the day at [phone] or via Tech Cocktail serve. Patient was seen independently by Nurse Practitioner. This document was prepared using Servergy dictation software. Please allow for errors in scanning supervisor while rare they do occur. Objective - Vital Signs Vital signs: Vital Signs Temp 98.6 F 10/14/23 19:45 Pulse 91 10/15/23 03:10 Resp 18 10/15/23 03:10 BP 130/70 10/15/23 03:10 Pulse Ox 97 10/15/23 03:10 FiO2 Intake & Output 10/14/23 10/15/23 10/15/23 18:59 06:59 18:59 Intake Total 420 Output Total 740 0 Balance -320 0 Weight 68.2 kg 67.9 kg Intake: IV 300 Oral 120 Output: Gastric Drainage 0 Urine 740 0 Stool 0 Urine/Stool Mix 0 Emesis 0 Oral Regurgitation 0 Other 0 Other: Voiding Method External Catheter Toilet # Voids 0 - Labs CBC & Chem 7: 10/15/23 05:51 10/15/23 05:51 Labs: Abnormal Lab Results - Last 24 Hours (Table) 10/14/23 10/14/23 10/15/23 Range/Units 08:50 08:50 05:51 RBC (4.30-5.90) m/uL Hgb (13.0-17.5) gm/dL Hct (39.0-53.0) % Plt Count 128 L (150-450) k/uL Sodium 134 L (137-145) mmol/L Chloride 108 H 108 H (98-107) mmol/L Glucose 117 H (74-99) mg/dL Total Protein 5.6 L (6.3-8.2) g/dL Albumin 3.3 L (3.5-5.0) g/dL 10/15/23 Range/Units 05:51 RBC 3.94 L (4.30-5.90) m/uL Hgb 12.5 L (13.0-17.5) gm/dL Hct 37.4 L (39.0-53.0) % Plt Count 106 L (150-450) k/uL Sodium (137-145) mmol/L Chloride (98-107) mmol/L Glucose (74-99) mg/dL Total Protein (6.3-8.2) g/dL Albumin (3.5-5.0) g/dL
== END 2023-10-15 13:05 | disposition home or self-care (01) | DRG 269 ==
LOC: 2ORMAIN 10-14 08:11 → 3SCARD 10-14 14:21
PROVIDERS: ADMIT Surgery; ATTEND Surgery
PROC: 4A133J1 Monitoring of Arterial Pulse, Peripheral, Percutaneous Approach (ICD-10-PCS; 2023-10-14)
PROC: 03HY32Z Insertion of Monitoring Device into Upper Artery, Percutaneous Approach (ICD-10-PCS; 2023-10-14)
PROC: 04V03DZ Restriction of Abdominal Aorta with Intraluminal Device, Percutaneous Approach (ICD-10-PCS; principal; 2023-10-14 10:15)
PROC: 4A133B1 Monitoring of Arterial Pressure, Peripheral, Percutaneous Approach (ICD-10-PCS; 2023-10-14 10:15)
DX: I71.43 Infrarenal abdominal aortic aneurysm, without rupture (principal); I10 Essential (primary) hypertension; H91.90 Unspecified hearing loss, unspecified ear; N40.0 Benign prostatic hyperplasia without lower urinary tract symptoms; E78.5 Hyperlipidemia, unspecified; F17.210 Nicotine dependence, cigarettes, uncomplicated; L40.9 Psoriasis, unspecified; M48.02 Spinal stenosis, cervical region; M19.90 Unspecified osteoarthritis, unspecified site; R11.0 Nausea; G89.18 Other acute postprocedural pain; Z79.82 Long term (current) use of aspirin; Z79.899 Other long term (current) drug therapy; Z86.73 Personal history of transient ischemic attack (TIA), and cerebral infarction without residual deficits; Z87.11 Personal history of peptic ulcer disease; Z87.19 Personal history of other diseases of the digestive system
CPT/HCPCS: 34705; 37226; 80048; 80053; 83735; 85025; 85027; 86850; 86900; 86901

== ENCOUNTER → 2023-12-06 | Outpatient (CLI) | payer MEDICARE, OTHER ==
[2023-12-06 11:03] LABS: African American GFR (CKD) 81 (>60 ml/min/1.73 sqM); Blood Urea Nitrogen 13 mg/dL (9-20); Non-African American GFR(CKD) 70 (>60 ml/min/1.73 sqM)
--- NOTE | 2023-12-06 13:31 | CT ---
"EXAMINATION TYPE: CT angio abdomen pelvis CT DLP: 1881 mGycm, Automated exposure control for dose reduction was used. DATE OF EXAM: 12/06/2023 12:02 PM COMPARISON: CT abdomen and pelvis 08/12/2023. CLINICAL INDICATION:Male, 78 years old with history of I71.4 ANEURYSM; F/U AAA WITH REPAIR TECHNIQUE: Multiple thin slice sub-millimeter images were obtained through the abdomen and pelvis bef ore and after administration of contrast. Patient was given Isovue 370, 100 cc intravenously. Maximu m intensity projection images were obtained of the abdominal aorta and its branches. FINDINGS: CTA Abdomen and pelvis: Postsurgical changes from aortobifemoral stent graft beginning at the aortic hiatus. Stable size of aortic saccular aneurysms measuring 3.0 and 1.9 cm, previously 3.0 and 1.9 cm when measured with similar technique. No evidence for intramural hematoma. No evidence for endoleak. Atherosclerotic plaquing is identified within the abdominal aorta. The origins of the superior mesen teric artery, renal arteries, inferior mesenteric artery, and celiac axis are patent. Atherosclerotic plaquing is identified within the bilateral common iliac arteries. Stable left common iliac artery a neurysm measuring up to 2.4 cm with stent demonstrated. Stable right common carotid artery aneurysm m easuring up to 1.6 cm. Increased aneurysmal dilatation of the proximal left internal iliac artery jus t after the bifurcation measuring up to 1.6 cm with short segment 1.5 cm dissection in this aneurysm (series 13, image [id number]). Previously measured up to 1.1 cm. Additional development of short segment n onocclusive dissection involving the right external iliac artery measuring grossly 1.8 cm in length ( series 6, image 54). Moderate atherosclerotic plaque within the iliac arteries. VISCERA: The liver, spleen, adrenal glands, kidneys, pancreas, and gallbladder are not optimally enha nced due the arterial phase utilized. LIVER: Few peripheral calcified granulomas. GALLBLADDER AND BILE DUCTS: Unremarkable. PANCREAS: Unremarkable. SPLEEN: Unremarkable. ADRENAL GLANDS: Unremarkable. KIDNEYS AND URETERS: No evidence of hydronephrosis or renal calculus. Cortical thinning involving the posterior aspect of the right mid kidney likely represent a prior injury. Bilateral renal cysts with largest having from the inferior pole of the left kidney measuring up to 5.7 cm. PELVIS BLADDER: Unremarkable REPRODUCTIVE: Coarse calcifications of the prostate gland are identified. ABDOMEN & PELVIS STOMACH AND BOWEL: Stomach and duodenum are unremarkable. No focal bowel wall thickening or surroundi ng inflammatory changes. Distal colonic diverticulosis without evidence for acute diverticulitis. No evidence of bowel obstruction. PERITONEUM: No evidence of pneumoperitoneum or free fluid. MUSCULOSKELETAL: No acute osseous abnormalities. Mild degenerative disc disease most pronounced at L5 -S1. LYMPH NODES: No gross evidence for lymphadenopathy. SOFT TISSUE/ABDOMINAL WALL: Unremarkable IMPRESSION: 1. Postsurgical changes from aortobiiliac stent graft without evidence of endoleak. 2. 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 3. Stable size of bilateral common iliac artery aneurysms. A Yellow level critical message alert has been initiated for Amadou Hammond DO via the [employer] | Critical Results System on 12/06/2023 1:27 PM. This message alert has been sent to Amadou Chamberlain i, DO via the preferences provided by the clinician for the receipt of Radiology Critical Findings. Shanelle essage ID [id number]. [facility], , 12/06/2023 1:28 PM"
== END | disposition home or self-care (01) ==
LOC: RADCTMAIN 10:23
PROVIDERS: ATTEND Surgery
DX: I71.40 Abdominal aortic aneurysm, without rupture, unspecified
CPT/HCPCS: 36415; 74174; 82565; 84520

== ENCOUNTER → 2023-12-27 | Outpatient (CLI) | payer MEDICARE, OTHER ==
--- NOTE | 2023-12-27 09:58 | US ---
EXAMINATION TYPE: US thyroid st tissue head/neck DATE OF EXAM: 12/27/2023 COMPARISON: Thyroid ultrasound 03/23/2022, 09/04/2021, 11/15/2018, ultrasound FNA thyroid 09/17/2021 CLINICAL INDICATION: Male, 78 years old with history of E04.1 THYROID NODULE; f/u nodule TECHNIQUE: Grayscale and color Doppler imaging of the thyroid gland. FINDINGS: GLAND SIZE: Right Lobe: 3.5 x 1.4 x 1.5 cm Overall Parenchyma: homogeneous Left Lobe: 4.4 x 1.5 x 2.4 cm Overall Parenchyma: heterogeneous Isthmus Thickness: 0.6 cm NODULES RIGHT: # of nodules measured on right: 0 LEFT: # of nodules measured on left: 1 1. 0.8 X 0.4 x 0.4 cm, upper , cystic or almost completely cystic, isoechoic nodule, which is wider than tall, with smooth margins, without echogenic foci. TR 1. Prior size: 1.1 x 0.6 x 0.8 cm ISTHMUS: # of nodules measured in the isthmus: 0 Bilateral neck scanned, no evidence of lymphadenopathy. IMPRESSION: Decrease in size of previously biopsied TR 1 left thyroid lobe nodule. No new or enlarging thyroid no dules. [facility], , 12/27/2023 9:55 AM
== END | disposition home or self-care (01) ==
LOC: RADUSWWP 07:55
PROVIDERS: ATTEND Internal Medicine
DX: E04.1 Nontoxic single thyroid nodule
CPT/HCPCS: 76536

== ENCOUNTER → 2024-01-30 | Outpatient (CLI) | payer MEDICARE, OTHER ==
--- NOTE | 2024-01-31 17:09 | CTL ---
EXAMINATION TYPE: CT Low Dose Lung DATE OF EXAM ORDERED: 01/30/2024 COMPARISON: CT chest 09/28/2022, 09/04/2021, 11/15/2018 CLINICAL INDICATION: Male, 78 years old with history of Z12.2 SCREENING LUNG CA F17.210 CURRENT SMOKE R; PHH, Nicotine dependency of 2ppd x60 years, current smoker., Lung cancer screening, History of Smo wilmer/tobacco use. TECHNIQUE: Low dose computed tomography scan was performed through the chest at 1 mm thick sections a nd reconstructed images in multiple planes at 1 mm and [address] DLP: 82.[address] CTDI: 2.0 mGy Automated exposure control for dose reduction was used. CT DIAGNOSTIC QUALITY: Satisfactory FINDINGS: Nodules: Several stable scattered pulmonary nodules the exams including a pleural-based right lower lobe 4 mm nodule (series 6, image 55), right lung base 5.3 mm pulmonary nodule (series 6, image 57), peripheral lateral right lower lobe 2.5 mm pulmonary nodule (series 6, image 44), right anterior mid lung 4.3 m m pulmonary nodule (series 6, image 34). Right middle lobe anterior 5.1 mm pulmonary nodule (series 6 , image 40). Anterior right upper lobe 4.4 mm pulmonary nodule (series 6, image 16). Left upper lobe 4.5 mm pulmonary nodule (series 6, image 25). LUNGS: COPD: Severity: Mild to moderate Fibrosis: Severity: None Lymph nodes: None Other findings: Redemonstration of stable 1.6 cm oval hypodense lesion anterior mediastinum possibly representing a pericardiac cyst. RIGHT PLEURAL SPACE: Effusion: None Calcification: None Thickening: None Pneumothorax: None LEFT PLEURAL SPACE: Effusion: None Calcification: None Thickening: None Pneumothorax: None HEART: Heart Size: Normal Coronary Calcification: Small Pericardial Effusion: None OTHER FINDINGS: Upper abdomen: Partial visualization of abdominal aortic stent graft. Exophytic left lateral renal 3. 7 cm cyst is partially visualized. Calcified granuloma within the anterior right hepatic lobe. Bony thorax: Hypertrophic and degenerative changes of the spine. Supraclavicular region: None Other: None IMPRESSION: 1. Several stable pulmonary nodules dating back to 2021 CT. No new or enlarging pulmonary nodule. 2. Mild to moderate COPD changes. CT LUNG RAD AND CT CHEST RECOMMENDATION: Lung-Rad 2 Benign Appearance or Behavior: Continue annual sc reening with LDCT in 12 months. S Modifier (other clinically significant findings): None [facility], , 01/31/2024 5:06 PM
== END | disposition home or self-care (01) ==
LOC: RADCTMAIN 14:33
PROVIDERS: ATTEND Internal Medicine
DX: Z12.2 Encounter for screening for malignant neoplasm of respiratory organs (principal); J44.9 Chronic obstructive pulmonary disease, unspecified; N28.1 Cyst of kidney, acquired; F17.210 Nicotine dependence, cigarettes, uncomplicated; R91.1 Solitary pulmonary nodule; K76.89 Other specified diseases of liver
CPT/HCPCS: 71271

== ENCOUNTER → 2024-03-06 | Outpatient (CLI) | payer MEDICARE, OTHER | END | disposition home or self-care (01) | LOC: RADUSWWP 12:08 | PROVIDERS: ATTEND Internal Medicine | DX: Z53.9 Procedure and treatment not carried out, unspecified reason (principal) ==

== ENCOUNTER → 2024-04-10 | Outpatient (CLI) | payer MEDICARE, OTHER ==
--- NOTE | 2024-04-10 15:25 | US ---
EXAMINATION TYPE: US thyroid st tissue head/neck DATE OF EXAM: 04/10/2024 COMPARISON: 12/27/2023 CLINICAL INDICATION: Male, 78 years old with history of R22.1 NECK NODULE; Palpable lump on left/back of neck x couple months Findings: Two hypoechoic nodules measuring 0.8 x 0.2 x 0.7cm and 0.8 x 0.2 x 0.7cm seen at patient's area of co ncern most likely related to small lymph nodes. IMPRESSION: There are two small soft tissue nodules seen in the area of palpable abnormality likely representing benign lymph nodes. Short-term follow-up ultrasound could be obtained to confirm stabil ity. [facility], , 04/10/2024 3:22 PM
== END | disposition home or self-care (01) ==
LOC: RADUSWWP 14:58
PROVIDERS: ATTEND Internal Medicine
DX: R22.1 Localized swelling, mass and lump, neck (principal)
CPT/HCPCS: 76536

== ENCOUNTER → 2024-06-12 | Outpatient (CLI) | payer MEDICARE ==
[2024-06-12 10:39] LABS: African American GFR (CKD) >90 (>60 ml/min/1.73 sqM); Blood Urea Nitrogen 11 mg/dL (9-20); Non-African American GFR(CKD) 85 (>60 ml/min/1.73 sqM)
--- NOTE | 2024-06-13 06:49 | CT ---
EXAMINATION TYPE: CT angio abdomen pelvis DATE OF EXAM: 06/12/2024 COMPARISON: Prior CTA December 06, 2023 CLINICAL INDICATION: Male, 78 years old with history of I71.43 INFRARENAL ABDOMINAL AORTIC ANEURYSM, WITHO, AAA with repair., TECHNIQUE: CT scan of the abdomen and pelvis is performed without and with IV Contrast, patient injected with 10 0ml mL of Isovue 370., (none if empty) Oral contrast used: without Oral Contrast (none if empty) CT DLP: 874.60 mGycm, Automated exposure control for dose reduction was used. 3-D reconstructed images are created on an independent workstation and reviewed. FINDINGS: VASCULAR:Postsurgical changes from aortobifemoral stent graft beginning at the diaphragm are redemons trated. [place] AAA up to 3.3 cm transversely axial image 38 series 3 is redemonstrated and stable. No evidence for intramural hematoma on noncontrast images. Postcontrast images redemonstrate patency of the stent graft. No evidence for extraluminal enhancement on delayed images to suggest endoleak. The origins of the superior mesenteric artery, and bilateral renal arteries, and celiac axis are patent. Stable left common iliac artery aneurysm measuring up to 2.1 cm with stent demonstrated. Increased a neurysmal dilatation of the proximal left internal iliac artery just after the bifurcation measuring up to 1.8 cm with short segment dissection in this aneurysm redemonstrated (series 15, image 81). Per sistent short segment nonocclusive dissection involving the right external iliac artery measuring patricia ssly 2.0 cm in length (series 6, image 140). LUNG BASES: Mild peripheral linear scarring redemonstrated. LIVER/GB: A few peripheral small calcifications or granulomas are redemonstrated. PANCREAS: No significant abnormality is seen. SPLEEN: No significant abnormality is seen. ADRENALS: No significant abnormality is seen. KIDNEYS: Simple 1.2 cm exophytic thin-walled cyst laterally in the right kidney. Large right exophyti c thin-walled cysts laterally and inferiorly in the left kidney are redemonstrated BOWEL: Sigmoid colonic diverticulosis is redemonstrated.. PROSTATE/SEMINAL VESICLES: Slightly enlarged prostate gland with central calcifications are redemonst rated. LYMPH NODES: No greater than 1cm abdominal or pelvic lymph nodes are appreciated. OSSEOUS STRUCTURES: Persistent moderate disc space narrowing with vacuum disc phenomenon at the L5-S1 level. OTHER: No significant additional abnormality is seen. IMPRESSION: Slightly more prominent negative AAA with patent aortobiiliac stent graft. No CTA evidenc e for endoleak. Stable bilateral iliac artery focal dissections and left-sided iliac artery aneurysms . [facility], , 06/13/2024 6:47 AM
== END | disposition home or self-care (01) ==
LOC: RADCTMAIN 09:56
PROVIDERS: ATTEND Surgery
DX: I71.43 Infrarenal abdominal aortic aneurysm, without rupture (principal); I72.3 Aneurysm of iliac artery
CPT/HCPCS: 82565; 84520; 36415; 74174; Q9967